=== PATIENT | female | born 1940 | race Caucasian/White ===

== ENCOUNTER → 2023-05-04 10:44 | Outpatient (REF) | payer MEDICARE, OTHER, SELFPAY ==
[2023-05-04 13:32] LABS: Blood Urea Nitrogen 22 mg/dl (7-17); Calcium 10.3 mg/dl (8.4-10.2); Carbon Dioxide 29 mmol/L (22-30); Chloride 99 mmol/L (98-107); Glucose 100 mg/dl (70-99); Potassium 4.1 mmol/L (3.5-5.1); Sodium 137 mmol/L (135-145); eGFR > 60.00
== END ==
LOC: HWLAB 10:44
PROVIDERS: ATTENDING PHYSICIAN Internal Medicine Rheumatology; FAMILY PHYSICIAN Physician Assistant
DX: M81.0 Age-related osteoporosis without current pathological fracture (principal)
CPT/HCPCS: 36415; 80048

== ENCOUNTER → 2023-06-08 12:09 | Outpatient (REF) | payer MEDICARE, OTHER, SELFPAY ==
[2023-06-08 12:41] LABS: Ionized Calcium 1.35 mMOL/L (1.15-1.33)
[2023-06-08 13:21] LABS: Blood Urea Nitrogen 25 mg/dl (7-17); Calcium 10.5 mg/dl (8.4-10.2); Carbon Dioxide 31 mmol/L (22-30); Chloride 102 mmol/L (98-107); Glucose 76 mg/dl (70-99); Potassium 4.3 mmol/L (3.5-5.1); Sodium 139 mmol/L (135-145); eGFR > 60.00
== END ==
LOC: REG 12:09
PROVIDERS: ATTENDING PHYSICIAN Internal Medicine Rheumatology; FAMILY PHYSICIAN Physician Assistant
DX: E83.52 Hypercalcemia (principal)
CPT/HCPCS: 36415; 80048; 82330

== ENCOUNTER → 2023-07-13 09:58 | Outpatient (REF) | payer MEDICARE, OTHER, SELFPAY ==
[2023-07-13 12:08] LABS: Blood Urea Nitrogen 23 mg/dl (7-17); Calcium 9.5 mg/dl (8.4-10.2); Carbon Dioxide 26 mmol/L (22-30); Chloride 106 mmol/L (98-107); Glucose 90 mg/dl (70-99); Sodium 139 mmol/L (135-145); eGFR 50.17
== END ==
LOC: REG 09:58
PROVIDERS: ATTENDING PHYSICIAN Internal Medicine Rheumatology; FAMILY PHYSICIAN Physician Assistant
DX: E83.52 Hypercalcemia (principal); M81.0 Age-related osteoporosis without current pathological fracture
CPT/HCPCS: 36415; 80048; 82330

== ENCOUNTER → 2023-07-19 18:33 | Outpatient (REF) | payer MEDICARE, OTHER, SELFPAY ==
[2023-07-19 18:50] LABS: Urine Albumin Negative (Neg - Trace); Urine Bilirubin Negative (Negative); Urine Character Clear (Clear); Urine Color Yellow; Urine Glucose Negative (Negative); Urine Ketone Negative (Negative); Urine Leukocyte 2+ (Negative); Urine Nitrite Negative (Negative); Urine Occult Blood Trace (Negative); Urine Urobilinogen Negative (Neg - 1+)
[2023-07-19 18:59] LABS: Urine Red Blood Cell 0-2 /HPF (0-2); Urine Squamous Cell 0-2 /LPF (Few); Urine White Cell 16-20 /HPF (0-5)
== END ==
LOC: CLAB 18:33
PROVIDERS: ATTENDING PHYSICIAN Specialist
DX: R31.0 Gross hematuria (principal)
CPT/HCPCS: 81003; 81015

== ENCOUNTER → 2023-09-20 09:44 | Outpatient (REF) | payer MEDICARE, OTHER, SELFPAY ==
[2023-09-20 12:37] LABS: Blood Urea Nitrogen 18 mg/dl (7-17); Calcium 10.1 mg/dl (8.4-10.2); Carbon Dioxide 28 mmol/L (22-30); Chloride 102 mmol/L (98-107); Glucose 84 mg/dl (70-99); Potassium 4.2 mmol/L (3.5-5.1); Sodium 137 mmol/L (135-145); eGFR > 60.00
== END ==
LOC: HWLAB 09:44
PROVIDERS: ATTENDING PHYSICIAN Internal Medicine Rheumatology; FAMILY PHYSICIAN Physician Assistant
DX: E07.9 Disorder of thyroid, unspecified (principal); E55.9 Vitamin D deficiency, unspecified; I25.10 Atherosclerotic heart disease of native coronary artery without angina pectoris; M19.041 Primary osteoarthritis, right hand; M25.551 Pain in right hip; M51.37 Other intervertebral disc degeneration, lumbosacral region; M81.0 Age-related osteoporosis without current pathological fracture; R29.890 Loss of height; Z79.899 Other long term (current) drug therapy
CPT/HCPCS: 36415; 80048

== ENCOUNTER → 2023-12-31 11:10 | Outpatient (REF) | payer MEDICARE, OTHER, SELFPAY ==
[2023-12-31 12:43] LABS: ALT (SGPT) 22 U/L (0-35); AST (SGOT) 27 U/L (14-36); Albumin 4.3 g/dl (3.5-5.0); Alkaline Phosphatase 97 U/L (38-126); Blood Urea Nitrogen 27 mg/dl (7-17); Calcium 11.1 mg/dl (8.4-10.2); Carbon Dioxide 29 mmol/L (22-30); Glucose 105 mg/dl (70-99); Potassium 4.7 mmol/L (3.5-5.1); Sodium 141 mmol/L (135-145); Total Protein 6.4 g/dl (6.3-8.2); eGFR > 60.00
[2023-12-31 12:50] LABS: Chloride 101 mmol/L (98-107)
== END ==
LOC: REG 11:10
PROVIDERS: ATTENDING PHYSICIAN Internal Medicine Rheumatology; FAMILY PHYSICIAN Physician Assistant
DX: E55.9 Vitamin D deficiency, unspecified (principal); I25.10 Atherosclerotic heart disease of native coronary artery without angina pectoris; M16.11 Unilateral primary osteoarthritis, right hip; M19.041 Primary osteoarthritis, right hand; M81.0 Age-related osteoporosis without current pathological fracture; R29.890 Loss of height; Z68.25 Body mass index [BMI] 25.0-25.9, adult; Z79.899 Other long term (current) drug therapy
CPT/HCPCS: 36415; 80053

== ENCOUNTER → 2024-01-21 11:04 | Outpatient (REF) | payer MEDICARE, OTHER, SELFPAY ==
[2024-01-21 11:40] LABS: Ionized Calcium 1.26 mMOL/L (1.15-1.33)
[2024-01-21 12:34] LABS: Blood Urea Nitrogen 31 mg/dl (7-17); Calcium 10.2 mg/dl (8.4-10.2); Carbon Dioxide 27 mmol/L (22-30); Chloride 104 mmol/L (98-107); Glucose 93 mg/dl (70-99); Potassium 4.2 mmol/L (3.5-5.1); Sodium 143 mmol/L (135-145); eGFR > 60.00
== END ==
LOC: REG 11:04
PROVIDERS: ATTENDING PHYSICIAN Internal Medicine Rheumatology; FAMILY PHYSICIAN Physician Assistant
DX: E83.52 Hypercalcemia (principal); M81.0 Age-related osteoporosis without current pathological fracture
CPT/HCPCS: 36415; 80048; 82330

== ENCOUNTER → 2024-02-18 12:08 | Outpatient (REF) | payer MEDICARE, OTHER, SELFPAY ==
[2024-02-18 14:25] LABS: Blood Urea Nitrogen 26 mg/dl (7-17); Calcium 10.3 mg/dl (8.4-10.2); Carbon Dioxide 28 mmol/L (22-30); Chloride 102 mmol/L (98-107); Glucose 87 mg/dl (70-99); Potassium 4.3 mmol/L (3.5-5.1); Sodium 140 mmol/L (135-145); eGFR > 60.00
[2024-02-18 14:31] LABS: Ionized Calcium 1.35 mMOL/L (1.15-1.33)
== END ==
LOC: REG 12:08
PROVIDERS: ATTENDING PHYSICIAN Internal Medicine Rheumatology; FAMILY PHYSICIAN Physician Assistant
DX: E83.52 Hypercalcemia (principal); M81.0 Age-related osteoporosis without current pathological fracture
CPT/HCPCS: 36415; 80048; 82330

== ENCOUNTER → 2024-03-17 10:18 | Outpatient (REF) | payer MEDICARE, OTHER, SELFPAY | LOC: HWRAD 10:18 | PROVIDERS: ATTENDING PHYSICIAN Internal Medicine Rheumatology; FAMILY PHYSICIAN Physician Assistant; REFERRING PHYSICIAN Podiatrist Foot & Ankle Surgery | DX: M70.62 Trochanteric bursitis, left hip (principal); M81.0 Age-related osteoporosis without current pathological fracture; M20.41 Other hammer toe(s) (acquired), right foot | CPT/HCPCS: 72114; 73502; 73630 ==

== ENCOUNTER → 2024-03-20 08:43 | Outpatient (REF) | payer MEDICARE, OTHER, SELFPAY ==
[2024-03-20 09:22] LABS: % Basophils 0.5 % (0-2); % Eosinophils 2.5 % (0-6); % Immature Granulocytes 0.3 % (0-0.5); % Lymphocytes 11.3 % (20.5-51.1); % Monocytes 8.3 % (1.7-9.3); % Neutrophils 77.1 % (42.2-75.2); Absolute Eosinophils 0.2 10^3/uL (0-0.7); Absolute Lymphocytes 0.7 10^3/uL (1.2-3.4); Absolute Monocytes 0.5 10^3/uL (0.1-0.6); Absolute Neutrophils 4.7 10^3/uL (1.4-6.5); Hematocrit 44.3 % (37.0-47.0); Hemoglobin 14.5 g/dL (12.0-16.0); Mean Corp Hgb Conc. 32.7 g/dL (33.0-37.0); Mean Corpuscular Hgb 32.2 pg (27.0-31.0); Mean Corpuscular Volume 98.2 fL (81.0-99.0); Mean Platelet Volume 9.4 fL (7.4-10.4); Nucleated Red Blood Cells % 0 %; Platelet Count 160 10^3/uL (130-400); Red Blood Cell Count 4.51 10^6/uL (4.20-5.40); Red Cell Dist. Width 13.4 % (11.5-14.5)
[2024-03-20 09:31] LABS: Ionized Calcium 1.24 mMOL/L (1.15-1.33)
[2024-03-20 10:00] LABS: C-Reactive Protein < 5.00 mg/L (0.0-10.00)
[2024-03-20 10:15] LABS: ALT (SGPT) 19 U/L (0-35); AST (SGOT) 25 U/L (14-36); Albumin 4.4 g/dl (3.5-5.0); Alkaline Phosphatase 93 U/L (38-126); Blood Urea Nitrogen 23 mg/dl (7-17); Calcium 9.6 mg/dl (8.4-10.2); Carbon Dioxide 31 mmol/L (22-30); Chloride 101 mmol/L (98-107); Glucose 84 mg/dl (70-99); Potassium 4.6 mmol/L (3.5-5.1); Sodium 138 mmol/L (135-145); Total Bilirubin 0.8 mg/dl (0.2-1.3); Total Protein 6.6 g/dl (6.3-8.2); Uric Acid 6.2 mg/dl (2.5-6.2); eGFR > 60.00
== END ==
LOC: REG 08:43
PROVIDERS: ATTENDING PHYSICIAN Internal Medicine Rheumatology; FAMILY PHYSICIAN Physician Assistant
DX: E55.9 Vitamin D deficiency, unspecified (principal); I25.10 Atherosclerotic heart disease of native coronary artery without angina pectoris; M16.11 Unilateral primary osteoarthritis, right hip; M19.041 Primary osteoarthritis, right hand; M70.62 Trochanteric bursitis, left hip; M81.0 Age-related osteoporosis without current pathological fracture; R29.890 Loss of height; Z79.899 Other long term (current) drug therapy
CPT/HCPCS: 36415; 80053; 82330; 84550; 85025; 86140

== ENCOUNTER → 2024-04-18 09:11 | Outpatient (REF) | payer MEDICARE, OTHER, SELFPAY ==
[2024-04-18 11:52] LABS: % Basophils 0.5 % (0-2); % Eosinophils 2.8 % (0-6); % Immature Granulocytes 0.2 % (0-0.5); % Lymphocytes 13.8 % (20.5-51.1); % Monocytes 6.8 % (1.7-9.3); % Neutrophils 75.9 % (42.2-75.2); Absolute Eosinophils 0.2 10^3/uL (0-0.7); Absolute Lymphocytes 0.8 10^3/uL (1.2-3.4); Absolute Monocytes 0.4 10^3/uL (0.1-0.6); Absolute Neutrophils 4.3 10^3/uL (1.4-6.5); Hematocrit 44.5 % (37.0-47.0); Hemoglobin 14.2 g/dL (12.0-16.0); Mean Corp Hgb Conc. 31.9 g/dL (33.0-37.0); Mean Corpuscular Hgb 31.3 pg (27.0-31.0); Mean Platelet Volume 10.2 fL (7.4-10.4); Nucleated Red Blood Cells % 0 %; Platelet Count 157 10^3/uL (130-400); Red Blood Cell Count 4.54 10^6/uL (4.20-5.40); Red Cell Dist. Width 12.8 % (11.5-14.5); White Blood Cell Count 5.7 10^3/uL (4.8-10.8)
[2024-04-18 12:01] LABS: ALT (SGPT) 17 U/L (0-35); AST (SGOT) 24 U/L (14-36); Albumin 4.2 g/dl (3.5-5.0); Alkaline Phosphatase 95 U/L (38-126); Blood Urea Nitrogen 21 mg/dl (7-17); Calcium 9.5 mg/dl (8.4-10.2); Carbon Dioxide 32 mmol/L (22-30); Chloride 101 mmol/L (98-107); Glucose 96 mg/dl (70-99); HDL Cholesterol 73 mg/dl; Iron 105 ug/dl (37-170); LDL Cholesterol, Calculated 55 mg/dl; Magnesium 1.9 mg/dl (1.6-2.3); Potassium 4.7 mmol/L (3.5-5.1); Sodium 139 mmol/L (135-145); Total Bilirubin 0.7 mg/dl (0.2-1.3); Total Cholesterol 144 mg/dl (50-199); Total Protein 6.6 g/dl (6.3-8.2); Triglyceride 81 mg/dl (10-149); Very Low Density Lipoprotein 16 mg/dl (0-30); eGFR > 60.00
[2024-04-18 12:11] LABS: Percent Saturation 31 % (20-50); Total Iron Binding Capacity 330 ug/dl (265-497)
[2024-04-18 12:17] LABS: Vitamin D, 25-OH*** 48.1 ng/mL (30-80)
[2024-04-18 12:35] LABS: Ferritin 34.7 ng/ml (11.1-264.0)
== END ==
LOC: HWLAB 09:11
PROVIDERS: ATTENDING PHYSICIAN Physician Assistant
DX: R25.2 Cramp and spasm (principal); I10 Essential (primary) hypertension; E78.5 Hyperlipidemia, unspecified; D50.9 Iron deficiency anemia, unspecified; I25.10 Atherosclerotic heart disease of native coronary artery without angina pectoris; M54.16 Radiculopathy, lumbar region; E55.9 Vitamin D deficiency, unspecified
CPT/HCPCS: 36415; 80053; 80061; 82306; 82728; 83540; 83550; 83735; 85025

== ENCOUNTER → 2024-04-28 13:59 | Outpatient (REF) | payer MEDICARE, OTHER, SELFPAY | LOC: HWWDC 13:59 | PROVIDERS: ATTENDING PHYSICIAN Physician Assistant | DX: Z12.31 Encounter for screening mammogram for malignant neoplasm of breast (principal) | CPT/HCPCS: 77063; 77067 ==

== ENCOUNTER → 2024-06-19 10:04 | Outpatient (REF) | payer MEDICARE, OTHER, SELFPAY | LOC: HWRAD 10:04 | PROVIDERS: ATTENDING PHYSICIAN Internal Medicine Rheumatology; FAMILY PHYSICIAN Physician Assistant | DX: Z13.820 Encounter for screening for osteoporosis (principal); M81.0 Age-related osteoporosis without current pathological fracture | CPT/HCPCS: 77080 ==

== ENCOUNTER → 2024-06-20 12:55 | Outpatient (REF) | payer MEDICARE, OTHER, SELFPAY ==
[2024-06-20 14:18] LABS: ALT (SGPT) 18 U/L (0-35); AST (SGOT) 26 U/L (14-36); Albumin 4.7 g/dl (3.5-5.0); Alkaline Phosphatase 85 U/L (38-126); Blood Urea Nitrogen 29 mg/dl (7-17); Calcium 10.2 mg/dl (8.4-10.2); Carbon Dioxide 32 mmol/L (22-30); Chloride 104 mmol/L (98-107); Glucose 96 mg/dl (70-99); Potassium 4.9 mmol/L (3.5-5.1); Sodium 142 mmol/L (135-145); eGFR > 60.00
[2024-06-20 14:32] LABS: Vitamin D, 25-OH*** 56.1 ng/mL (30-80)
== END ==
LOC: REG 12:55
PROVIDERS: ATTENDING PHYSICIAN Internal Medicine Rheumatology; FAMILY PHYSICIAN Physician Assistant
DX: E55.9 Vitamin D deficiency, unspecified (principal); I25.10 Atherosclerotic heart disease of native coronary artery without angina pectoris; M16.11 Unilateral primary osteoarthritis, right hip; M19.041 Primary osteoarthritis, right hand; M70.62 Trochanteric bursitis, left hip; M81.0 Age-related osteoporosis without current pathological fracture; R29.890 Loss of height; Z79.899 Other long term (current) drug therapy
CPT/HCPCS: 36415; 80053; 82306; 82330

== ENCOUNTER → 2024-07-21 08:12 | Outpatient (REF) | payer MEDICARE, OTHER, SELFPAY | LOC: HWRCS 08:12 | PROVIDERS: ATTENDING PHYSICIAN Nurse Practitioner; FAMILY PHYSICIAN Physician Assistant | DX: I25.10 Atherosclerotic heart disease of native coronary artery without angina pectoris (principal); R42 Dizziness and giddiness | CPT/HCPCS: 93306 ==

== ENCOUNTER → 2024-07-25 12:53 | Outpatient (REF) | payer MEDICARE, OTHER, SELFPAY ==
[2024-07-25 16:25] LABS: Urine Albumin Negative (Neg - Trace); Urine Bilirubin Negative (Negative); Urine Character Clear (Clear); Urine Color Yellow; Urine Glucose Negative (Negative); Urine Ketone Negative (Negative); Urine Leukocyte 2+ (Negative); Urine Nitrite Negative (Negative); Urine Occult Blood Negative (Negative); Urine Urobilinogen Negative (Neg - 1+)
[2024-07-25 16:39] LABS: Urine Red Blood Cell 0-2 /HPF (0-2); Urine White Cell 26-30 /HPF (0-5)
[2024-07-25 16:40] LABS: Urine Bacteria Moderate (Negative)
== END ==
LOC: HWRAD 12:53
PROVIDERS: ATTENDING PHYSICIAN Specialist; FAMILY PHYSICIAN Physician Assistant
DX: D49.4 Neoplasm of unspecified behavior of bladder (principal); N20.0 Calculus of kidney; R31.0 Gross hematuria
CPT/HCPCS: 74018; 76770; 81003; 81015; 87086; 87088; 87186

== ENCOUNTER 2024-12-11 18:21 | Inpatient (IN) | payer MEDICARE, OTHER, SELFPAY ==
[2024-12-11] VITALS (38 sets, daily range): BP systolic 73–143; BP diastolic 41–81; BMI 28.4
[2024-12-11 13:35] LABS: Hematocrit 41.2 % (37.0-47.0); Hemoglobin 13.7 g/dL (12.0-16.0); Mean Corp Hgb Conc. 33.3 g/dL (33.0-37.0); Mean Corpuscular Volume 94.3 fL (81.0-99.0); Platelet Count 75 10^3/uL (130-400); Red Cell Dist. Width 13.6 % (11.5-14.5)
--- NOTE | 2024-12-11 14:13 | ED.GENMED ---
History of Present Illness
<Chanell Alicia ENVIRONMENTAL SPECIALIST - Last Filed: 12/12/24 14:15>
General
Chief Complaint: Blood Pressure Problem
Source: patient
Exam Limitations: none
Time Seen by Provider: 12/11/24 14:03
Nursing documentation reviewed up to this point in time: agreed with
History of Present Illness
History of Present Illness:
84 yo female w h/o HTN, SD, SVT, osteoporosis, anemia, kidney stones, presents from PCP office for fever, chills, low back pain, also rash bilateral ankles. Was in [place] and [place] last week visiting, [facility]. Pt has had PND and
taking Flonase. Denies cough or sore throat.
Low back pain started 7 p.m., and hour later shaking chills, temp 102. Took ASA x 2 tabs, pain was 6/10. Woke at 6 a.m. took 2 more ASA.
Vomited once on arrival here.
Denies CP, SOB, denies abdominal pain. Low back pain now 3/10 from 7/10 last p.m.
Past History
<Chanell Alicia ENVIRONMENTAL SPECIALIST - Last Filed: 12/12/24 14:15>
Past History
ED Past Medical History: Arrthythmia, CAD, HTN, Hypercholesterolemia, SD and Other (Osteoporosis)
ED Past Surgical History: Other (Radiofrequency Ablation therapy Lumbar spine Corticosteroid injection L hip)
Social History
Tobacco: Non-smoker
Alcohol: Occasional
Drug: None
Personal:
Living: with family
Family History
Family History: CAD and Other (No arrhythmias)
Review of Systems
<Chanell Alicia ENVIRONMENTAL SPECIALIST - Last Filed: 12/12/24 14:15>
Review of Systems
Allergies reviewed?: Yes
All Other Systems: ROS reviewed and negative except as documented in HPI and ROS
Phy Exam
<Chanell Alicia, ENVIRONMENTAL SPECIALIST - Last Filed: 12/12/24 14:15>
Physical Exam
Physical Exam:
GENERAL: Hypotensive but stable. A&Ox3.
CONSTITUTIONAL: Afebrile.
EYES: clear, conjunctivae normal
ENMT: moist mucus membranes, Pharynx nl
RESPIRATORY: Regular respirations, nonlabored, lungs clear.
CARDIOVASCULAR: Regular rate and rhythm, no murmurs, no rubs.
GI: Soft, nontender, normal BS
MUSCULOSKELETAL: Moves with ease. Well perfused.
SKIN: Warm, dry, pink. Non blanching raised purple lesions about both ankles, nowhere else on body, Surrounding skin is normal.
PSYCH: Normal mood and affect. Well kept, interactive and appropriate
NEUROLOGIC: Awake, alert and oriented. No focal neurological deficits
Course
<Chanell Alicia, ENVIRONMENTAL SPECIALIST - Last Filed: 12/12/24 14:15>
Orders/Labs/Results
Orders:
Orders
12/11/24 13:18
Basic Metabolic Panel Urgent
Complete Blood Count/With Diff Urgent
Lactic Acid Q4H
Comment: ON ICE, CANCEL 2ND ORDER IF FIRST LACTIC ACID LEVEL <2
Manual Differential Urgent
Blood Culture Q20M
TOMMY Source: Blood/Venous
Specimen Description:
Comment: Urgent from separate sites. If patient screens positive for possible sepsis
12/11/24 13:19
Blood Culture Q20M
TOMMY Source: Blood/Venous
Specimen Description:
Comment: Urgent from separate sites. If patient screens positive for possible sepsis
12/11/24 14:11
Straight cath- Treatment ONCE
12/11/24 14:12
0.9% Sodium Chloride 1000 ml [Nss] 1,800 ml IV NOW STA
12/11/24 14:15
COVID-19 Antigen Urgent
Source: Nasal Swab
Influenza A+B Rapid Molecular Urgent
TOMMY Source: Nasal Swab
Specimen Description:
12/11/24 14:16
Urinalysis Reflex To Culture Urgent
Date Specimen was Collected: 12/11/24
Time Specimen was Collected: 14:14
Urine Microscopic Reflex Cult Urgent
Urine Culture Urgent
TOMMY Source: U
Specimen Description:
Date Specimen was Collected: 12/11/24
Time Specimen was Collected: 14:14
12/11/24 14:42
CT Abd/pel Without Iv Or Oral Urgent
Comment:
Reason For Exam: low back pain, fever, chills, hx kidney stones
12/11/24 14:44
Cefepime HCl [Maxipime] 2,000 mg IV NOW STA
12/11/24 14:52
Vancomycin [Vancocin] 1,500 mg 0.9% Sodium Chloride 500 ml [Nss] 500 ml IV NOW
12/11/24 Dinner
Cholesterol Lowering
At Your Request: Full Participation
Cholesterol Lowering: Sodium, 2 Gram
12/11/24 15:54
CR Chest Portable - 1 View Urgent
Comment:
Reason For Exam: fever
Reason Study Needs to be Portable: Patient Unstable
12/11/24 17:30
Lactic Acid Q4H
Comment: ON ICE, CANCEL 2ND ORDER IF FIRST LACTIC ACID LEVEL <2
12/11/24 17:32
UROLOGY CONSULT Urgent
Consulting Provider: Lobo Gary
Was physician already notified: Yes
Comment: obstructive pyelonephritis, sepsis
12/11/24 17:41
0.9% Sodium Chloride 1000 ml [Nss] 1,000 ml IV BOLUS
12/11/24 17:52
Lidocaine HCl/Pf [Xylocaine-Mpf 1% Vial] 50 mg .ROUTE .STK-MED ONE
Propofol [Diprivan] 20 ml .ROUTE .STK-MED
12/11/24 17:54
Fentanyl Citrate/Pf [Sublimaze] 100 mcg .ROUTE .STK-MED ONE
12/11/24 18:03
Admit/Transfer Patient As Directed
Co-Sign Provider:
Level of Care: Inpatient admission
Assign to:: IMU- Intermediate Care
Physician / Group: [facility] - hospitalists
Diagnosis: Sepsis POA, UTI, obstructive stone
Reason for Hospitalization: Sepsis POA, UTI, obstructive stone - OR urgently, IVF, IV abx
Expected length of stay greater than two midnights?: Yes
ELOS- Estimated Length of Stay in days: 3
I certify the patient meets the requirements for IP care: Yes
PRN Pain Medication Management As Directed
May give lesser potent ordered pain med per pt: Yes
preference::
Protocol:: Medication orders for pain may be administered in a
manner that supports deferring to patient preference
when the pt is:
- Requesting an ordered lesser potent pain medication.
Least to most potent pain medications are defined
as: acetaminophen < NSAID < tramadol < opioids
(morphine, oxycodone, hydromorphone).
- Requesting a lesser dose of the same medication IF
ORDERED.
- Requesting a less intrusive route of administration
if both routes are prescribed by the provider (PO <
IV).
12/11/24 18:04
Code Status As Directed
Resuscitation Status: Full Code
12/11/24 18:46
0.9% Sodium Chloride 1000 ml [Nss] 1,000 ml IV 100 mls/hr
Acetaminophen [Tylenol] 1,000 mg PO Q6HPRN PRN mild pain/fever
Bisacodyl [Dulcolax] 10 mg RECTAL [id number] PRN
Docusate W/Senna [Senokot-S] 1 tablet PO BIDPRN PRN
Ondansetron Injectable [Zofran] 4 mg IV Q6HPRN PRN
Polyethylene Glycol Powder [Miralax] 17 grams PO DAILYPRN PRN
Tramadol HCl [Ultram] 50 mg PO Q6HPRN PRN
12/11/24 18:46
Activity As Directed
Activity Level: As Tolerated
Vital Signs As Directed
Frequency: Per unit guidelines
Rx Incentive Spirometry [RESP] Routine
Frequency: q1h while awake
Ot Eval And Treat Routine
Pt Eval And Treat Routine
Activity Level: As Tolerated
DX Deep Vein Thrombosis Video Routine
12/11/24 20:00
Piperacillin/Tazo 2.25 Gram [Zosyn] 2.25 grams in 50 ml IV Q6H
12/12/24 03:32
Basic Metabolic Panel IN AM
Complete Blood Count/No Diff IN AM
12/12/24 08:00
Aspirin Chewable [Low Strength Aspirin] 81 mg PO DAILY
Carvedilol [Coreg] 12.5 mg PO BID
Heparin 5,000 units SC Q12
12/12/24 18:00
Atorvastatin [Lipitor] 80 mg PO QPM
Abnormal Lab Results
12/11/24 12/11/24
13:18 14:16
WBC 13.2 H 10^3/uL
(4.8-10.8)
MCH 31.4 H pg
(27.0-31.0)
Plt Count 75 L 10^3/uL
(130-400)
Abs Immat Gran (auto) 0.2 H 10^3/uL
(0-0.05)
Absolute Neuts (auto) 12.2 H 10^3/uL
(1.4-6.5)
Absolute Lymphs (auto) 0.2 L 10^3/uL
(1.2-3.4)
Immature Gran % 1.7 H %
(0-0.5)
Neutrophils % 92.5 H %
(42.2-75.2)
Lymphocytes % 1.5 L %
(20.5-51.1)
Abs Neuts (Manual) 12.2 H 10^3/uL
(1.4-6.5)
Band Neutrophils 23 H %
(0-3)
Lymphocytes (Manual) 1 L %
(20-51)
Monocytes (Manual) 1 L %
(2-9)
BUN 38 H mg/dl
(7-17)
Creatinine 1.6 H mg/dL
(0.6-1.0)
Glucose 109 H mg/dl
(70-99)
Lactic Acid 2.8 H mmol/L
(0.7-2.0)
Urine Ketones 1+ A
(Negative)
Ur Occult Blood Reflex 4+ A
(Negative)
Leukocyte Esterase Rfl 3+ A
(Negative)
Urine RBC 90-100 A /HPF
(0-2)
Urine WBC (Reflex) 26-30 A /HPF
(0-5)
Urine Bacteria (Reflex) Many A
(Negative)
Urine Albumin (Reflex) 2+ A
(Neg - Trace)
12/11/24 13:18
12/11/24 13:18
Vital Signs
Initial and Last Documented VS:
Initial Vital Signs
Temp Pulse Resp BP Pulse Ox
98.8 F 94 16 80/49 92
12/11/24 13:06 12/11/24 13:06 12/11/24 13:06 12/11/24 13:06 12/11/24 13:06
Last Documented Vital Signs
Temp Pulse Resp BP Pulse Ox
98.3 F 86 18 105/65 95
12/12/24 12:05 12/12/24 13:45 12/12/24 13:45 12/12/24 13:00 12/12/24 13:45
Mechanical Laboratory Technician consulted with Physician
Mechanical Laboratory Technician consulted with physician?: Yes
Name of Physician Consulted: Adolfo
<Radha Mata, DO - Last Filed: 12/11/24 15:55>
Orders/Labs/Results
Orders:
Orders
12/11/24 13:18
Basic Metabolic Panel Urgent
Complete Blood Count/With Diff Urgent
Lactic Acid Q4H
Comment: ON ICE, CANCEL 2ND ORDER IF FIRST LACTIC ACID LEVEL <2
Manual Differential Urgent
Blood Culture Q20M
TOMMY Source: Blood/Venous
Specimen Description:
Comment: Urgent from separate sites. If patient screens positive for possible sepsis
12/11/24 13:19
Blood Culture Q20M
TOMMY Source: Blood/Venous
Specimen Description:
Comment: Urgent from separate sites. If patient screens positive for possible sepsis
12/11/24 14:11
Straight cath- Treatment ONCE
12/11/24 14:12
0.9% Sodium Chloride 1000 ml [Nss] 1,800 ml IV NOW STA
12/11/24 14:15
COVID-19 Antigen Urgent
Source: Nasal Swab
Influenza A+B Rapid Molecular Urgent
TOMMY Source: Nasal Swab
Specimen Description:
12/11/24 14:16
Urinalysis Reflex To Culture Urgent
Date Specimen was Collected: 12/11/24
Time Specimen was Collected: 14:14
Urine Microscopic Reflex Cult Urgent
Urine Culture Urgent
TOMMY Source: U
Specimen Description:
Date Specimen was Collected: 12/11/24
Time Specimen was Collected: 14:14
12/11/24 14:42
CT Abd/pel Without Iv Or Oral Urgent
Comment:
Reason For Exam: low back pain, fever, chills, hx kidney stones
12/11/24 14:44
Cefepime HCl [Maxipime] 2,000 mg IV NOW STA
12/11/24 14:52
Vancomycin [Vancocin] 1,500 mg 0.9% Sodium Chloride 500 ml [Nss] 500 ml IV NOW
12/11/24 Dinner
Cholesterol Lowering
At Your Request: Full Participation
Cholesterol Lowering: Sodium, 2 Gram
12/11/24 15:54
CR Chest Portable - 1 View Urgent
Comment:
Reason For Exam: fever
Reason Study Needs to be Portable: Patient Unstable
12/11/24 17:30
Lactic Acid Q4H
Comment: ON ICE, CANCEL 2ND ORDER IF FIRST LACTIC ACID LEVEL <2
12/11/24 17:32
UROLOGY CONSULT Urgent
Consulting Provider: Lobo Gary
Was physician already notified: Yes
Comment: obstructive pyelonephritis, sepsis
12/11/24 17:41
0.9% Sodium Chloride 1000 ml [Nss] 1,000 ml IV BOLUS
12/11/24 17:52
Lidocaine HCl/Pf [Xylocaine-Mpf 1% Vial] 50 mg .ROUTE .STK-MED ONE
Propofol [Diprivan] 20 ml .ROUTE .STK-MED
12/11/24 17:54
Fentanyl Citrate/Pf [Sublimaze] 100 mcg .ROUTE .STK-MED ONE
12/11/24 18:03
Admit/Transfer Patient As Directed
Co-Sign Provider:
Level of Care: Inpatient admission
Assign to:: IMU- Intermediate Care
Physician / Group: [facility] hospitalists
Diagnosis: Sepsis POA, UTI, obstructive stone
Reason for Hospitalization: Sepsis POA, UTI, obstructive stone - OR urgently, IVF, IV abx
Expected length of stay greater than two midnights?: Yes
ELOS- Estimated Length of Stay in days: 3
I certify the patient meets the requirements for IP care: Yes
PRN Pain Medication Management As Directed
May give lesser potent ordered pain med per pt: Yes
preference::
Protocol:: Medication orders for pain may be administered in a
manner that supports deferring to patient preference
when the pt is:
- Requesting an ordered lesser potent pain medication.
Least to most potent pain medications are defined
as: acetaminophen < NSAID < tramadol < opioids
(morphine, oxycodone, hydromorphone).
- Requesting a lesser dose of the same medication IF
ORDERED.
- Requesting a less intrusive route of administration
if both routes are prescribed by the provider (PO <
IV).
12/11/24 18:04
Code Status As Directed
Resuscitation Status: Full Code
12/11/24 18:46
0.9% Sodium Chloride 1000 ml [Nss] 1,000 ml IV 100 mls/hr
Acetaminophen [Tylenol] 1,000 mg PO Q6HPRN PRN mild pain/fever
Bisacodyl [Dulcolax] 10 mg RECTAL [id number] PRN
Docusate W/Senna [Senokot-S] 1 tablet PO BIDPRN PRN
Ondansetron Injectable [Zofran] 4 mg IV Q6HPRN PRN
Polyethylene Glycol Powder [Miralax] 17 grams PO DAILYPRN PRN
Tramadol HCl [Ultram] 50 mg PO Q6HPRN PRN
12/11/24 18:46
Activity As Directed
Activity Level: As Tolerated
Vital Signs As Directed
Frequency: Per unit guidelines
Rx Incentive Spirometry [RESP] Routine
Frequency: q1h while awake
Ot Eval And Treat Routine
Pt Eval And Treat Routine
Activity Level: As Tolerated
DX Deep Vein Thrombosis Video Routine
12/11/24 20:00
Piperacillin/Tazo 2.25 Gram [Zosyn] 2.25 grams in 50 ml IV Q6H
12/12/24 03:32
Basic Metabolic Panel IN AM
Complete Blood Count/No Diff IN AM
12/12/24 08:00
Aspirin Chewable [Low Strength Aspirin] 81 mg PO DAILY
Carvedilol [Coreg] 12.5 mg PO BID
Heparin 5,000 units SC Q12
12/12/24 18:00
Atorvastatin [Lipitor] 80 mg PO QPM
Abnormal Lab Results
12/11/24 12/11/24
13:18 14:16
WBC 13.2 H 10^3/uL
(4.8-10.8)
MCH 31.4 H pg
(27.0-31.0)
Plt Count 75 L 10^3/uL
(130-400)
Abs Immat Gran (auto) 0.2 H 10^3/uL
(0-0.05)
Absolute Neuts (auto) 12.2 H 10^3/uL
(1.4-6.5)
Absolute Lymphs (auto) 0.2 L 10^3/uL
(1.2-3.4)
Immature Gran % 1.7 H %
(0-0.5)
Neutrophils % 92.5 H %
(42.2-75.2)
Lymphocytes % 1.5 L %
(20.5-51.1)
Abs Neuts (Manual) 12.2 H 10^3/uL
(1.4-6.5)
Band Neutrophils 23 H %
(0-3)
Lymphocytes (Manual) 1 L %
(20-51)
Monocytes (Manual) 1 L %
(2-9)
BUN 38 H mg/dl
(7-17)
Creatinine 1.6 H mg/dL
(0.6-1.0)
Glucose 109 H mg/dl
(70-99)
Lactic Acid 2.8 H mmol/L
(0.7-2.0)
Urine Ketones 1+ A
(Negative)
Ur Occult Blood Reflex 4+ A
(Negative)
Leukocyte Esterase Rfl 3+ A
(Negative)
Urine RBC 90-100 A /HPF
(0-2)
Urine WBC (Reflex) 26-30 A /HPF
(0-5)
Urine Bacteria (Reflex) Many A
(Negative)
Urine Albumin (Reflex) 2+ A
(Neg - Trace)
12/11/24 13:18
12/11/24 13:18
Vital Signs
Initial and Last Documented VS:
Initial Vital Signs
Temp Pulse Resp BP Pulse Ox
98.8 F 94 16 80/49 92
12/11/24 13:06 12/11/24 13:06 12/11/24 13:06 12/11/24 13:06 12/11/24 13:06
Last Documented Vital Signs
Temp Pulse Resp BP Pulse Ox
98.3 F 86 18 105/65 95
12/12/24 12:05 12/12/24 13:45 12/12/24 13:45 12/12/24 13:00 12/12/24 13:45
<Chanell Alicia ENVIRONMENTAL SPECIALIST - Last Filed: 12/12/24 14:15>
MDM/Problems Addressed
Differential Diagnosis Includes:
Pyelonephritis, UTI, kidney stone
MDM/Problems Addressed:
84 yo female w h/o HTN, SD, SVT, osteoporosis, anemia, kidney stones, presents from PCP office for fever, chills, low back pain, also rash bilateral ankles. Was in [place] and [place] last week visiting, [facility]. Pt has had PND and
taking Flonase. Denies cough or sore throat.
Low back pain started 7 p.m., and hour later shaking chills, temp 102. Took ASA x 2 tabs, pain was 6/10. Woke at 6 a.m. took 2 more ASA.
Vomited once on arrival here.
Denies CP, SOB, denies abdominal pain. Low back pain now / from 7 last p.m.
Afebrile. BP 78/44 MAP 21
Pt alert, oriented, mentating well. Non blanching purple lesions both ankles.
Sepsis protocol followed.
2:40 p.m.
After 1200 IVFs BP LUE 84/42, (MAP 69) comfortable
Most suspicious of Pyelonephritis with Sepsis, Antibiotics ordered
Case discussed with Dr. Mata
CBC: Mild leukocytosis, thrombocytopenia with platelets of 75
CMP: BUN/creat 38/1.6 GFR 31.61
Lactic 2.8
3:00 p.m.
U/A: 4+ occult blood, 98-100 RBCs, 26-30 WBCs, many bacteria, 3+ leukocytes, negative nitrites, 2+ albumin
COVID test is negative
Influenza A & B neg
Purpura rash; seems to be slowly spreading, few scattered lesions around knees and one on left thigh.
Radial pulse in E weaker (1/4)than in RUE (2/4) so rechecked BP in RUE 88/46 (MAP 60)
4:15 p.m.
After 2 L NSS BP 89/53 (MAP 64) HR 98. Pt resting comfortably
To CT scan
CT scan showing 'Right-sided obstructive uropathy secondary to 5.1 mm calculus in the proximal right ureter. Superimposed infection to be excluded.'
Hospitalist and Urology notified of admission.
Plan: Admit: obstructive uropathy Sepsis, acute renal insufficiency, thrombocytopenia, purpura rash lower extremities
Critical care statement: A total of 40 minutes of critical care time was provided for this patient. This includes management of unstable vital signs, evaluation of the patient at bedside, reviewing the patient's pertinent medical records, discussion
with consultants and review of pertinent medical records. This time with separate from time utilized to perform the aforementioned documented procedures
Chronic conditions affecting care:
Kidney stones
Chronic conditions affecting care: HTN
<Chanell Alicia ENVIRONMENTAL SPECIALIST - Last Filed: 12/12/24 14:15>
*Pulse Oximetry
SaO2: 92
Oxygen Mode of Delivery: Room air
Patient hypoxic: no
Comment: At 3:00 p.m. pulse ox 96% RA
*Critical Care Note
Total Time (30-74mins, 75-104mins- exclusive of procedures): Not Applicable
ED Attending Note
<Chanell Alicia ENVIRONMENTAL SPECIALIST - Last Filed: 12/12/24 14:15>
-
Portions of this chart may have been created with voice recognition software.� Occasional wrong word or��sound alike� substitutions may have occurred due to the inherent limitations of voice recognition software.
<Radha Mata DO - Last Filed: 12/11/24 15:55>
ED Attending Note
Patient seen and examined by attending physician: Yes
I performed the substantive portion of visit, reviewed & personally made and approve the management plan that is documented in note by myself or SOO.: Yes
I performed a history and physical exam of patient and discussed management with resident, I reviewed resident's note and agree with documented findings and plan of care.: Yes
ED Attending Note:
84-year-old female presents to the ER from PCP office for evaluation of hypotension. Patient reports low back discomfort along with a fever up to 102 last night. Patient denies any pain at current time. She does have prior history of urinary
tract infections and kidney stones. Vital signs reviewed, patient awake, alert, appears in no acute distress, mucous membranes moist, conjunctiva pink, abdomen is soft and nontender on palpation, bilateral lower extremities with scattered purpura
around the ankles and medial left knee, GCS is 15, 2+ DP and PT pulses present symmetric. I discussed with patient need for admission for treatment of hypertension with fever. Awaiting CT scan to rule out complicated urinary tract infection.
Patient and present bedside agree with plan at current
Discharge Plan
Departure
Patient Disposition: Admit
Date of Disposition: 12/11/24
Time of Disposition: 17:34
Presentation/result/management discussed w/ accepting MD/DO: Hospitalist
Condition: Serious
Discharge Problem:
Acute unilateral obstructive uropathy, Sepsis, Acute pyelonephritis
Interventions
Interventions:
*Risk Screen - Suicide Last Done: 12/11/24 13:06
*General Assessment Last Done: 12/11/24 13:48
*Neglect/Abuse Screening Last Done: 12/11/24 13:48
*ED- Fall Risk Assessment Last Done: 12/11/24 13:48
*ED COVID-19 Vaccine History Last Done: 12/11/24 13:48
*Nursing Disposition Last Done: 12/11/24 18:21
ED- Cardiac Assessment Last Done: 12/11/24 13:48
ED- Neurological Assessment Last Done: 12/11/24 13:48
ED- Pulmonary Assessment Last Done: 12/11/24 13:48
Discharge Date and Time
Discharge Date/Time: 12/11/24 18:22
[2024-12-11] MEDS: NSS 1800 ML IV (14:21)
[2024-12-11 14:22] LABS: Blood Urea Nitrogen 38 mg/dl (7-17); Calcium 9.4 mg/dl (8.4-10.2); Carbon Dioxide 24 mmol/L (22-30); Chloride 101 mmol/L (98-107); Estimated Creatinine Clearance 20 ml/min; Glucose 109 mg/dl (70-99); Sodium 135 mmol/L (135-145); eGFR 31.61
[2024-12-11 14:32] LABS: Urine Character Cloudy (Clear)
[2024-12-11 14:34] LABS: Absolute Neutrophils -Man Diff 12.2 10^3/uL (1.4-6.5)
[2024-12-11 14:36] LABS: Normal RBC Morphology Yes; Platelets Checked Yes; Total Cells Counted 100
[2024-12-11 14:45] LABS: Nucleated Red Blood Cells % 0 %
[2024-12-11 14:48] LABS: COVID-19 Antigen Negative (Negative)
[2024-12-11] MEDS: MAXIPIME 2000 MG IV (14:49)
[2024-12-11 14:57] LABS: Urine Urothelial Cell 0-2 /LPF (FEW)
[2024-12-11 14:59] LABS: Urine Red Blood Cell 90-100 /HPF (0-2)
[2024-12-11 15:00] LABS: Urine White Cell 26-30 /HPF (0-5)
[2024-12-11] MEDS: VANCOCIN 530 MG IV (15:14)
--- NOTE | 2024-12-11 17:52 | HPS.HSE ---
Family Physician
-
Family Physician: Toshia Gardiner
Chief Complaint
-
Low back pain/fever/chills
History of Present Illness
84 y/o F, hx of HTN, CAD, SVT renal stones presents to ER from PCP office with low back and fever/chills. Symptoms began last evening at 7pm. 1 hour later she developed shaking cells and fever of 102. took ASA last evening and this AM to help with
symptoms but no relief. Today in ER vomiting x 1 (no blood). No other complaints.
in ER, initial VS (hypotension) And labs suggestive of sepsis and UTI discovered on UA
CT showed obstructive R prox ureteral stone
Urology notified and taking urgently to OR for stenting
Medical History
Past Medical History
Past Medical History: Reports Other (hx of HTN, CAD, SVT renal stones)
Past Surgical History: Reports Other (Radiofrequency Ablation therapy Lumbar spine Corticosteroid injection L hip)
Social History
Tobacco: Non-smoker
Alcohol: Occasional
Drug: None
Personal:
Living: With Family
Family History
Family History: Not pertinent
Allergies / Home Medications
Allergies reflects when Allergies were last updated in [facility].
Home Medications with original date entered in [facility]
Allergy/Medication List:
Allergies
Allergy/AdvReac Type Severity Reaction Status Date / Time
No Known Allergies Allergy Verified 12/11/24 13:06
Home Medications
Curamed 1 tab PO DAILY Supplement 07/25/21
Prevagen 1 tab PO DAILY Supplement 07/25/21
aspirin 81 mg chewable tablet 81 mg PO DAILY 07/29/21
atorvastatin 80 mg tablet 80 mg PO QPM #90 tabs 07/29/21
losartan 25 mg tablet 25 mg PO HS 02/01/22
acetaminophen 500 mg tablet 1,000 mg PO Q6HPRN PRN mild pain/fever 12/11/24
acetaminophen 650 mg tablet,extended release 650 mg PO Q8HPRN PRN mild pain/fever 12/11/24
carvedilol 12.5 mg tablet 12.5 mg PO BID 12/11/24
diphenhydramine 25 mg-acetaminophen 500 mg tablet (Tylenol PM Extra Strength) 1 tab PO HSPRN PRN sleep 12/11/24
magnesium 250 mg tablet 250 mg PO DAILY 12/11/24
teriparatide 20 mcg/dose (560 mcg/2.24 mL) subcutaneous pen injector (Forteo) 20 mcg SC MOWEFR 12/11/24
Review of Systems
-
A 12 point ROS was completed and negative except as noted: Yes
Physical Exam
Vital Signs
Vital Signs
Temp Pulse Resp BP Pulse Ox
99 F 90 19 90/49 96
12/11/24 14:46 12/11/24 17:20 12/11/24 17:20 12/11/24 17:20 12/11/24 16:45
Physical Exam
General: No Apparent Distress
HEENT: NormoCephalic and Anicteric
Respiratory: Clear; No Wheezes or Rales
Cardiac: S1/S2 and Regular Rhythm
Neuro: AO x 3
Psych: Calm
Laboratory Results
-
12/11/24 13:18
12/11/24 13:18
Laboratory Results
Lactic Acid 2.8 mmol/L (0.7-2.0) H 12/11/24 13:18
Total Bilirubin Cancelled 12/11/24 13:18
AST Cancelled 12/11/24 13:18
ALT Cancelled 12/11/24 13:18
Alkaline Phosphatase Cancelled 12/11/24 13:18
Data Reviewed
-
CT Scan: Report Reviewed by me
Lab Data: Labs Reviewed by me
Impression/Plan
-
Assessment:
Severe sepsis POA (leukocytosis, tachycardia, UTI, lactic acidosis)
acute UTI
- CT: Right-sided obstructive uropathy secondary to 5.1 mm calculus in the proximal right ureter. Superimposed infection to be excluded.
- IMU Admit
- sepsis protocol IVF; lactate improved
- monitor BP post-op, may need low rate pressors
- empiric Zosyn pending cultures (received Vanco/Cefepime in ER)
- Urology consult; urgent OR now for stenting
RAULITO, obstructive
- continue IVF
- repeat BMP
- hold ARB
Essential HTN
- hold ARB
- continue BB
CAD
hx of SVT
- continue ASA/Statin/BB
DVT ppx: SC Heparin starting in AM
Code: Full
[2024-12-11] MEDS: NSS 1000 IV ×2 (18:03→20:36)
--- NOTE | 2024-12-11 18:16 | W.PN.URO.CBU ---
Today's Communication / Plan
-
did marquez nd p called op room consetned preoop
Assessment / Plan
-
urosepsis due to obstructing stone plan fluid resuscitation roberts cxs iv abs ansd maniulate stone gretchen and leave stent if fails then perc tube
Diagnosis
-
Date of Service: December 11, 2024
-
Patient Diagnosis:sepsis syndrome hypotension due to obstructing rt prox urertal stone
Post Op Day:
Subjective
-
fevr chills colic x 16 hours rt sided pain
Objective
-
Vital Signs
Temp Pulse Resp BP Pulse Ox
99 F 97 23 101/58 94
12/11/24 14:46 12/11/24 18:00 12/11/24 18:00 12/11/24 18:00 12/11/24 18:00
Laboratory Results
12/11/24 13:18
12/11/24 13:18
Review of Systems
-
Constitutional: Fever, Night Sweats and Chills
: Flank Pain
Physical Exam
-
General - well developed, well nourished, no acute distress toxic
Chest - clear bilaterally
Abdomen - soft, non-tender, positive bowel sounds, CVAT, no incisional pain or distention
Genitalia - normal
Rectal - normal
Skin - warm & dry with no rash
Neuro - AOx3, no motor deficits
Extremities - no clubbing, no cyanosis, no edema
Incision - clean, dry
Dressing - clean, dry, intact
Care Review
Data Reviewed
Discussed with: Hospitalist and Nursing
CT Scan: Image Pers Reviewed
--- NOTE | 2024-12-11 19:17 | W.SUR.POST ---
Surgical Immediate Post Op
Note
Pre Op Diagnosis: rt ureteral stone with obstruction sepsis
Post Op Diagnosis: same
Procedure Performed: cystoscopy stone manipulation jj stent rgp on rt
Secondary Surgeons:
Anesthesia: dr abad general
Estimated Blood Loss: 1
Fluids:nss
Drains/Shunts: 6 fr 25
Specimens/Cultures: 0
Doppler/Duplex/Angio (Y/N):
Complications: 0
Operative Findings: septic pt with prox stone manipulated gross pus drained above stone stented
--- NOTE | 2024-12-11 19:49 | W.PN.UPDATE ---
Update Note
Progress Note Update
Patient has received >3L IVF but now on 8 of Levophed (max for IMU) with BP 87/47, with MAP 60. Will upgrade to ICU level. ICU consulted.
[2024-12-11] MEDS: LEVOPHED 250 IV (20:00)
[2024-12-11] MEDS: ZOSYN 50 IV (21:05)
[2024-12-11 21:14] LABS: Hematocrit 35.2 % (37.0-47.0); Hemoglobin 11.7 g/dL (12.0-16.0); Mean Corp Hgb Conc. 33.2 g/dL (33.0-37.0); Mean Corpuscular Volume 95.4 fL (81.0-99.0); Platelet Count 62 10^3/uL (130-400); Red Cell Dist. Width 14.1 % (11.5-14.5)
[2024-12-11 21:15] LABS: INR 1.27; PT 16.2 Sec (11.4-14.6)
[2024-12-11 21:16] LABS: APTT 30.4 Sec (23.4-35.0)
[2024-12-11 21:27] LABS: ALT (SGPT) 16 U/L (0-35); AST (SGOT) 23 U/L (14-36); Albumin 2.8 g/dl (3.5-5.0); Alkaline Phosphatase 45 U/L (38-126); Blood Urea Nitrogen 30 mg/dl (7-17); Calcium 6.8 mg/dl (8.4-10.2); Carbon Dioxide 21 mmol/L (22-30); Chloride 110 mmol/L (98-107); Estimated Creatinine Clearance 30 ml/min; Glucose 97 mg/dl (70-99); Magnesium 1.5 mg/dl (1.6-2.3); Potassium 4.3 mmol/L (3.5-5.1); Sodium 134 mmol/L (135-145); Total Protein 4.7 g/dl (6.3-8.2); eGFR 49.55
[2024-12-11] MEDS: MAGNESIUM SULFATE 50 IV (22:15)
[2024-12-11] MEDS: CALCIUM GLUCONATE 130 MG IV (22:51)
--- NOTE | 2024-12-11 22:58 | PTCARENOTE ---
Pt received from PACU ~ 2014. 2L NC 97%. Lungs clear b/l. AAOx4, slightly drowsy. Connor draining yellow cloudy urine. HR SR on telemetry. Levo initially at 8mcg, currently 2mcg. IVF infusing as ordered. Labs drawn and sent - Ca and Mg repletion
ordered and administered (See MAR). Family at bedside.
[2024-12-12] VITALS (22 sets, daily range): BP systolic 96–118; BP diastolic 56–69; PULSE 81–84; O2SAT 96; BMI 28.0
--- NOTE | 2024-12-12 00:41 | PTCARENOTE ---
Levo off at 2350. No further changes in assessment.
[2024-12-12 03:44] LABS: Venous Blood Gas B.E. -6.6 mmol/L (-4 to +4); Venous Blood Gas O2 Sat % 100.0 %
[2024-12-12 03:45] LABS: Venous Blood Gas O2 Therapy O2
[2024-12-12] MEDS: ZOSYN 50 IV ×4 (03:45→20:33)
[2024-12-12 04:03] LABS: Hematocrit 35.4 % (37.0-47.0); Hemoglobin 11.8 g/dL (12.0-16.0); Mean Corp Hgb Conc. 33.3 g/dL (33.0-37.0); Mean Corpuscular Volume 95.4 fL (81.0-99.0); Platelet Count 52 10^3/uL (130-400); Red Cell Dist. Width 14.0 % (11.5-14.5)
[2024-12-12 04:10] LABS: Blood Urea Nitrogen 29 mg/dl (7-17); Calcium 9.0 mg/dl (8.4-10.2); Carbon Dioxide 19 mmol/L (22-30); Chloride 115 mmol/L (98-107); Estimated Creatinine Clearance 36 ml/min; Glucose 97 mg/dl (70-99); Potassium 4.4 mmol/L (3.5-5.1); Sodium 140 mmol/L (135-145); eGFR > 60.00
[2024-12-12 04:32] LABS: Magnesium 2.7 mg/dl (1.6-2.3)
[2024-12-12] MEDS: SODIUM BICARBONATE 1075 MEQ IV (05:04)
--- NOTE | 2024-12-12 05:41 | PTCARENOTE ---
AM labs resulted - bicarb gtt added. Levo remains off. Pt denies any pain, n/v. Afebrile
--- NOTE | 2024-12-12 07:23 | CON.INTV ---
Addendum entered and electronically signed by Inocencia Temple MD 12/12/24 11:37:
Patient successfully weaned off Levophed, hemodynamically stable
Stable for transfer out of ICU, vp of marketing service will sign off, please call as needed
Original Note:
Consultation
Consultation Request
Date/Time Consultation Requested: 12/11/2024
Date/Time Consultation Performed: 12/12/2024
Medical History
-
Chief Complaint: Abdominal pain, fever and chills
History of Present Illness:
Patient is a 84-year-old female with history of nephrolithiasis who presented to the emergency room from primary care provider's office in view of fever chills and low back pain. Symptoms started later in the evening on the day of presentation to
the emergency room. She was subsequently noted to be febrile to 102 degrees. Workup in the emergency room included a CT scan of her abdomen pelvis which showed an obstructive right sided proximal ureteral stone. Urology service was subsequently
contacted and patient was taken to the OR. She was also noted to have acute kidney injury as well as septic shock with elevated lactate. Patient had double-J stent placement and postop was admitted to the ICU in view of requirement for pressors
for septic shock. Development Educator consultation was requested for further input.
Past Medical History
Past Medical History: Reports Other (hx of HTN, CAD, SVT renal stones)
Past Surgical History: Reports Other (Radiofrequency Ablation therapy Lumbar spine Corticosteroid injection L hip)
Social History
Tobacco: Non-smoker
Alcohol: Occasional
Drug: None
Personal:
Living: With Family
Family History
Family History: Not pertinent
Allergies / Home Medications
Allergies / Home Medications
Allergies
Allergy/AdvReac Type Severity Reaction Status Date / Time
No Known Allergies Allergy Verified 12/11/24 13:06
Home Medications
�Medication �Instructions �Recorded �Confirmed �Last Taken �Type
Curamed 1 tab PO DAILY Supplement 07/25/21 12/11/24 02/01/22 History
Prevagen 1 tab PO DAILY Supplement 07/25/21 12/11/24 02/01/22 History
aspirin 81 mg chewable tablet 81 mg PO DAILY 07/29/21 12/11/24 02/01/22 Rx
atorvastatin 80 mg tablet 80 mg PO QPM #90 tabs 07/29/21 12/11/24 01/31/22 Rx
losartan 25 mg tablet 25 mg PO HS 02/01/22 12/11/24 02/01/22 History
acetaminophen 500 mg tablet 1,000 mg PO Q6HPRN PRN mild 12/11/24 12/11/24 Unknown History
pain/fever
acetaminophen 650 mg 650 mg PO Q8HPRN PRN mild 12/11/24 12/11/24 Unknown History
tablet,extended release pain/fever
carvedilol 12.5 mg tablet 12.5 mg PO BID 12/11/24 12/11/24 Unknown History
diphenhydramine 25 1 tab PO HSPRN PRN sleep 12/11/24 12/11/24 Unknown History
mg-acetaminophen 500 mg tablet
(Tylenol PM Extra Strength)
magnesium 250 mg tablet 250 mg PO DAILY 12/11/24 12/11/24 Unknown History
teriparatide 20 mcg/dose (560 20 mcg SC MOWEFR 12/11/24 12/11/24 Unknown History
mcg/2.24 mL) subcutaneous pen
injector (Forteo)
Review of Systems
-
Hematologic/Lymphatic: Other (All 14 systems reviewed and negative except as stated above in the history of present illness.)
Vitals / Labs / Diagnostic Testing
Vital Signs
Temp Pulse Resp BP Pulse Ox
98.3 F 62 16 97/56 97
12/12/24 01:20 12/12/24 06:30 12/12/24 06:30 12/12/24 06:00 12/12/24 06:30
Lab Data
12/12/24 03:32
12/12/24 03:32
Laboratory Results
12/11/24
20:56
PT 16.2 H
INR 1.27
APTT 30.4
Microbiology
12/11/24 13:18 Blood/Venous Blood Culture - Preliminary
Positive culture in progress
12/11/24 13:18 Blood/Venous Gram Stain - Preliminary
12/11/24 13:19 Blood/Venous Blood Culture - Preliminary
Positive culture in progress
12/11/24 13:19 Blood/Venous Gram Stain - Preliminary
12/11/24 14:15 Nasal Swab Influenza Types A & B (GABBY) - Final
Negative for Influenza A & B, NAAT
Negative results must be combined with clinical observations
and patient history.
Nucleic Acid Amplification test (NAAT)performed on the
[employer] platform.
Diagnostic Testing:
Physical Exam
-
HEENT: Normocephalic
Cardiovascular: S1/S2
Respiratory: Clear
GI: Soft and Non Distended
Neurology: Awake, Alert and Oriented
Skin: Warm
General: Comfortable
Assessment
-
#1. Septic shock with complicated UTI due to obstructive uropathy
- CT suggestive of right-sided 5.1 mm calculus in proximal right ureter. S/p cystoscopy and double-J stent placement with cross pus drainage noted. Urology service on case
- Gram-negative bacteremia noted on prelim cultures. Prior history of pansensitive E. coli in 06/2024
- WBC count elevated, slight improvement to 12.7 this morning.
- VBG with pH of 7.31, improving lactate from 2.8 on admission to 1.6 more recently.
- Clinically improving, weaned off Levophed. Discontinue IV fluids
- Encourage incentive spirometry in view of mild hypoxia and atelectasis
#2. RAULITO on admission
- Related to obstructive uropathy and shock
- Responded well to stent placement and improved drainage and IV fluids, creatinine down to 0.9 compared to 1.6 on admission
Other medical diagnoses:
- H/o CAD. s/p PCI in 07/2021
- HTN
DVT prophylaxis:
Critical Care time 58 mins -- The patient is admitted for acute critical illness for the treatment of vital organ failure and/or prevention of further life-threatening conditions. Total care includes time spent in review of history, physical exam,
medications, hemodynamic/ventilator parameters, laboratory data, imaging and discussion with house staff, pharmacy, respiratory therapy, senior power plant operator, and nursing.
Data:
CXR 11/2024: Mild pulmonary vascular congestion. Subsegmental atelectasis in the lung bases.
CT A/p 11/2024: Right-sided obstructive uropathy secondary to 5.1 mm calculus in the proximal right ureter. Superimposed infection to be excluded.
Multiple bilateral intrarenal calculi. Diverticulosis without acute diverticulitis. Linear and reticular interstitial thickening at the lung bases. Possible considerations include interstitial fibrotic changes, infectious or inflammatory process, or
possibly interstitial edema in the proper clinical setting.
ECHO 06/2024: Normal biventricular size and systolic function without regional wall motion abnormality.
Left ventricular ejection fraction by Lee's biplane method 60 to 65%.
Normal diastolic function.
Mild mitral regurgitation
Mild tricuspid regurgitation
Trileaflet aortic valve with mild aortic regurgitation
Estimated pulmonary artery systolic pressure 34 mmHg assuming a right atrial
pressure of 3 mmHg.
Aortic root size normal
No pericardial effusion
Lexiscan 03/2022: Normal perfusion imaging
LHC 07/2021: 1: Two-vessel coronary artery disease as described, RCA occlusion consistent with the infarct artery.
2: Mild left ventricular dysfunction.
3: Mild mitral regurgitation.
4: Successful 3.0/12 mm reggie point Xience V drug eluting stent to the mid RCA.
[2024-12-12] MEDS: LOW STRENGTH ASPIRIN 81 MG PO (08:08)
[2024-12-12] MEDS: HEPARIN 5000 UNITS SC ×2 (08:08→20:33)
--- NOTE | 2024-12-12 09:47 | PTCARENOTE ---
Patient now tele status. stopping all IV fluids. will work with PT.
--- NOTE | 2024-12-12 10:48 | W.PN.URO.CBU ---
Today's Communication / Plan
-
per hospitalist
Assessment / Plan
-
urosepsis due to obstructing stone s/p stent pt off pressors afebrile await cxs will if stable remove burgess am wed
Diagnosis
-
Date of Service: December 12, 2024
-
Patient Diagnosis:
Post Op Day:
Patient Diagnosis:sepsis syndrome hypotension due to obstructing rt prox urertal stone
Post Op Day:
Subjective
-
improving feels more baseline today
Objective
-
Vital Signs
Temp Pulse Resp BP Pulse Ox
97.9 F 80 18 116/69 95
12/12/24 08:03 12/12/24 09:45 12/12/24 09:45 12/12/24 09:00 12/12/24 09:45
Intake and Output
12/11/24 12/12/24 12/13/24
06:59 06:59 06:59
Intake Total 1352.5 / 1427.5 150 / 150
Output Total 1649 / 1874 225 / 225
Balance -297.5 / -447.5 -75 / -75
Intake:
IV fluids (Total) 1122.5 / 1197.5 150 / 150
Bicarb 75 / 150 150 / 150
Levo 47.5 / 47.5
normal saline 1000 / 1000
IV piggybacks 230 / 230
Output:
Urine, Burgess 1649 / 1874 225 / 225
Laboratory Results
12/12/24 03:32
12/12/24 03:32
Review of Systems
-
: Difficulty Voiding
Physical Exam
-
General - well developed, well nourished, no acute distress
Chest - clear bilaterally
Abdomen - soft, non-tender, positive bowel sounds, no CVAT, no incisional pain or distention
Genitalia - normal
Rectal - normal
Skin - warm & dry with no rash
Neuro - AOx3, no motor deficits
Extremities - no clubbing, no cyanosis, no edema
Incision - clean, dry
Dressing - clean, dry, intact
Care Review
Data Reviewed
Discussed with: Nursing and Family ([facility])
CT Scan: Image Pers Reviewed
--- NOTE | 2024-12-12 11:09 | W.PN.HOSP.TC ---
Today's Communication/Plan
-
stable for downgrade to Tele
cont empiric abx Zosyn
Connor as per Urology
Wean O2 supplementation as tolerated
PT/OT
home Coreg resumed at reduced dose w/ holding parameters for now
Assessment / Plan
Assessment / Plan
Physical Exam
General: No pallor, cyanosis, or jaundice.
HEENT: Throat clear. PERRLA Normocephalic atraumatic
NECK: Supple. No JVD Carotid Bruits
RESPIRATORY: Lungs clear to auscultation. No crackles wheezes stridor. Stable respiratory status on 2L NC
CVS: S1, S2 normal. RRR. No murmur, rub or gallop.
ABDOMEN: Soft, non-tender. No distension. BS+/normal. No flank/CVA angle tenderness
EXTREMITIES: No peripheral cyanosis or edema.
HONEY BLENDER: AOx3 conversant coherent
Psych: calm
84F HTN CAD hx SVT renal stones here with Septic Shock 2/2 obstructing right ureter kidney stone.
Septic Shock (leukocytosis, tachycardia, UTI, lactic acidosis, required pressor support)
acute complicated UTI
- CT: Right-sided obstructive uropathy secondary to 5.1 mm calculus in the proximal right ureter. Likely Superimposed infection
- Admitted to ICU downgraded to Tele next day after weaning off pressor support
- completed sepsis protocol IVF; lactate improved
- cont empiric Zosyn pending culture sensitivities (received Vanc/Cefepime in ER)
- blood and urine cx's growing E. coli
- Urology consult appreciated s/p OR stent and Connor placement 12/11, possible TOV tomorrow 12/13 Wed
Acute Hypoxic Insufficiency
12/12/24 appreciated small loculated right pleural effusion and mild left lower lobe probable atelectasis, possible developing pna
cont abx as above, however low suspicion pna at this time
encourage Incentive spirometer use
wean O2 supplementation as tolerated
RAULITO, obstructive
-resolved
-tolerating diet
-IVF support completed
-cont monitoring
Essential HTN
- cont hold home losartan d/t recent shock as above, can consider restarting if bp elevates
- resumed home Coreg at reduced dose 3.125 mg BID w/ holding parameters
CAD
hx of SVT
- continue home ASA/Statin
- reduced dose Coreg as above
PT/OT appreciated home health
DVT ppx: SC Heparin
Code: Full
discussed with patient and patient's Paul
I spent a total of 55 minutes with the patient or on the floor. More than 50% of this time involved counseling and coordination of care.
Anticipated Discharge: 24 - 48 hours
Subjective/Interval History
-
Date of Service: December 12, 2024
No acute distress resting comfortably in bed. Stable respiratory status on low dose oxygen supplementation. Reports abd/flank pain resolved.
Objective Data
-
Labs:
Laboratory Results
12/12/24
03:32
WBC 12.7 H
Hgb 11.8 L
Hct 35.4 L
Plt Count 52 L
Sodium 140
Potassium 4.4
Chloride 115 H
Carbon Dioxide 19 L
BUN 29 H
Creatinine 0.9
Glucose 97
Calcium 9.0 D
Vital Signs:
Vital Signs
Temp Pulse Resp BP Pulse Ox
97.9 F 80 18 116/69 95
12/12/24 08:03 12/12/24 09:45 12/12/24 09:45 12/12/24 09:00 12/12/24 09:45
I&O
12/11/24 12/12/24 12/13/24
06:59 06:59 06:59
Intake Total 1352.5 / 1427.5 600 / 600
Output Total 1650 / 1875 225 / 225
Balance -297.5 / -447.5 375 / 375
--- NOTE | 2024-12-12 11:38 | CM ---
Initial assessment completed with patient who lives with her in a 2 story home with no basement, B/B on 2nd, 1/2 bath on 1st, 2 steps to enter. ENDBANDER patient was independent in ADL's and ambulation, drives. Does have a RW , SPC and walking
sticks in the home. No in-home services. Does have a HC POA. No VA benefits. No psychiatric hospitalizations. PA is Toshia Gardiner in , practice unknown. [facility]acy is [facility] [place]. Discharge POC: Anticipate home with no needs if burgess is
pulled. If not, consider HH RN.
--- NOTE | 2024-12-12 14:56 | PTCARENOTE ---
Received patient from ICU via wheelchair. AAOx3, ambulated with assist to bed. Connor Catheter noted with clear, yellow output. Assessed and oriented to room. Call rosa in close reach.
[2024-12-12] MEDS: LIPITOR 80 MG PO (16:59)
[2024-12-12] MEDS: COREG 3.125 MG PO (20:35)
[2024-12-13] MEDS: ZOSYN 50 IV ×2 (02:50→08:54)
--- NOTE | 2024-12-13 02:50 | DOWNTIME ---
There was a [employer] Client Manager [place] Downtime on 12/13/2024 from 0100 to 12/13/2024 at 0215. Downtime documentation of patient's care, including medication administrations, has been reconciled in the electronic record per guidelines. Refer to the
patient's paper chart under the miscellaneous tab to see printed paper medication records and downtime forms.
[2024-12-13 03:55] VITALS: BP 116/69
[2024-12-13 07:00] VITALS: BP 125/80
--- NOTE | 2024-12-13 07:27 | W.PN.HOSP.TC ---
Addendum entered and electronically signed by Chay Akhtar MD 12/14/24 07:38:
Hypocalcemia
repleted
resolved
Original Note:
Today's Communication/Plan
-
cont abx
protonix, maalox prn
possible discharge tomorrow if remains stable, cont to improve
Assessment / Plan
Assessment / Plan
Physical Exam
General: No pallor, cyanosis, or jaundice.
HEENT: Throat clear. PERRLA Normocephalic atraumatic
NECK: Supple. No JVD Carotid Bruits
RESPIRATORY: Lungs clear to auscultation. No crackles wheezes stridor. Stable respiratory status on 2L NC
CVS: S1, S2 normal. RRR. No murmur, rub or gallop.
ABDOMEN: Soft, non-tender. No distension. BS+/normal. No flank/CVA angle tenderness
EXTREMITIES: No peripheral cyanosis or edema.
SUPERVISOR INSTRUMENT MECHANICS: AOx3 conversant coherent
Derm: small scattered pinpoint skin lesions noted lower ext ankles b/l
Psych: calm
84F HTN CAD hx SVT renal stones here with Septic Shock 2/2 obstructing right ureter kidney stone.
Septic Shock (leukocytosis, tachycardia, UTI, lactic acidosis, required pressor support)
acute complicated UTI
- CT: Right-sided obstructive uropathy secondary to 5.1 mm calculus in the proximal right ureter. Likely Superimposed infection
- Admitted to ICU downgraded to Tele next day after weaning off pressor support
- completed sepsis protocol IVF; lactate improved
- empiric Zosyn (received Vanc/Cefepime in ER) transitioned to Augmentin following sensitivity results
- blood and urine cx's growing E. coli pansensitive
- Urology consult appreciated s/p OR stent and Connor placement 12/11, TOV 12/13 Passed
Acute Hypoxic Insufficiency
12/12/24 appreciated small loculated right pleural effusion and mild left lower lobe probable atelectasis, possible developing pna
cont abx as above, however low suspicion pna at this time
encourage Incentive spirometer use
weaned off O2 supplementation
resolved
RAULITO, obstructive
-resolved
-tolerating diet
-IVF support completed
-cont monitoring
Essential HTN
- cont hold home losartan d/t recent shock as above, resumed with improvement in bp
- resumed home Coreg at reduced dose 3.125 mg BID w/ holding parameters titrated up to 6.25 mg bid
CAD
hx of SVT
- continue home ASA/Statin
- reduced dose Coreg as above
Brief episode of CP self limited 12/13
-EKG no acute changes noted in comparison to EKG Jan 2022
-troponin neg
-possibly GERD related vs pill esophagitis
-Protonix 40 gm daily, Maalox prn
small scattered pinpoint skin lesions noted lower ext ankles b/l
-patient recently came back from a trip outdoors few weeks ago
-painless, non-itching
-suspect healing past outdoor bug bites, Monitor for now.
PT/OT appreciated home health
DVT ppx: SC Heparin
Code: Full
I spent a total of 45 minutes with the patient or on the floor. More than 50% of this time involved counseling and coordination of care.
Anticipated Discharge: Within 24 hours
Subjective/Interval History
-
Date of Service: December 13, 2024
No acute distress sitting up comfortably in bed. Overall reports feeling well. Passed trial of void
Objective Data
-
Labs:
Laboratory Results
12/13/24
06:50
WBC Pending
Hgb Pending
Hct Pending
Plt Count Pending
Sodium Pending
Potassium Pending
Chloride Pending
Carbon Dioxide Pending
BUN Pending
Creatinine Pending
Glucose Pending
Calcium Pending
Vital Signs:
Vital Signs
Temp Pulse Resp BP Pulse Ox
98.5 F 83 16 116/69 93
12/13/24 03:55 12/13/24 03:55 12/13/24 03:55 12/13/24 03:55 12/13/24 03:55
I&O
12/12/24 12/13/24 12/14/24
06:59 06:59 06:59
Intake Total 1352.5 / 1427.5 1320 / 1900 580 / 580
Output Total 1650 / 1875 625 / 2275 1650 / 1650
Balance -297.5 / -447.5 695 / -375 -1070 / -1070
[2024-12-13 08:24] LABS: Hematocrit 34.2 % (37.0-47.0); Hemoglobin 11.5 g/dL (12.0-16.0); Mean Corp Hgb Conc. 33.6 g/dL (33.0-37.0); Mean Corpuscular Volume 94.0 fL (81.0-99.0); Platelet Count 63 10^3/uL (130-400); Red Cell Dist. Width 13.9 % (11.5-14.5)
[2024-12-13] MEDS: LOW STRENGTH ASPIRIN 81 MG PO (08:54)
[2024-12-13] MEDS: HEPARIN 5000 UNITS SC ×2 (08:54→19:56)
[2024-12-13] MEDS: COREG 3.125 MG PO ×2 (08:54→19:55)
[2024-12-13] MEDS: TYLENOL 1000 MG PO (08:59)
[2024-12-13 09:17] LABS: Blood Urea Nitrogen 26 mg/dl (7-17); Calcium 8.7 mg/dl (8.4-10.2); Carbon Dioxide 24 mmol/L (22-30); Chloride 111 mmol/L (98-107); Estimated Creatinine Clearance 40 ml/min; Glucose 90 mg/dl (70-99); Magnesium 2.1 mg/dl (1.6-2.3); Potassium 3.9 mmol/L (3.5-5.1); Sodium 139 mmol/L (135-145); eGFR > 60.00
--- NOTE | 2024-12-13 09:34 | PN.CDI ---
CDI
- -
CDI:
Physician Documentation Request
Admit Date: 12/11/24 18:21
Dear Doctor Hermilo,
Clinical Indicators:
Patient admitted with sepsis with shock.
12/11: Calcium Gluconate 3,000 mg IV rider x 1.
Magnesium Sulfate 2 gm IV rider x 1.
Ca/Mag levels:
12/11/24
20:56
Calcium 6.8 L* D
Magnesium 1.5 L
Based on the above, could you clarify in the progress notes, the appropriate diagnosis, if significant, that supports the above abnormalities and additional evaluation, monitoring and/or treatment rendered:
Hypocalcemia/hypomagnesemia
Abnormal lab values, clinically insignificant
Other, please specify
Use of terms such as suspected, likely, concern for, or probable (associated with a specific diagnosis that is being evaluated, monitored, or treated as if it exists) are acceptable and can be coded in the inpatient setting, when documented at the
time of discharge.
Thank you,
SHASHANK Pulido RN
CDI Specialist
available via tiger text
Please use your independent medical judgment in providing your response.
--- NOTE | 2024-12-13 09:41 | W.PN.URO.CBU ---
Today's Communication / Plan
-
remove burgess please
Assessment / Plan
-
urosepsis due to obstructing stone s/p stent pt off pressors afebrile await cxs will if stable remove burgess am wed
Diagnosis
-
Date of Service: December 13, 2024
-
Patient Diagnosis:
Post Op Day:
Patient Diagnosis:
Post Op Day:
Patient Diagnosis:sepsis syndrome hypotension due to obstructing rt prox urertal stone
Post Op Day:
Subjective
-
much better
Objective
-
Vital Signs
Temp Pulse Resp BP Pulse Ox
98.4 F 79 16 125/80 95
12/13/24 07:00 12/13/24 07:00 12/13/24 07:00 12/13/24 07:00 12/13/24 07:00
Intake and Output
12/12/24 12/13/24 12/14/24
06:59 06:59 06:59
Intake Total 1352.5 / 1427.5 1320 / 1900 580 / 580
Output Total 1650 / 1875 625 / 2275 1650 / 1650
Balance -297.5 / -447.5 695 / -375 -1070 / -1070
Intake:
Oral fluids 1170 / 1650 480 / 480
IV fluids (Total) 1122.5 / 1197.5 150 / 150
Bicarb 75 / 150 150 / 150
Levo 47.5 / 47.5
normal saline 1000 / 1000
IV piggybacks 230 / 230 0 / 100 100 / 100
Output:
Urine, Burgess 1650 / 1875 625 / 2275 1650 / 1650
Laboratory Results
12/13/24 06:50
12/13/24 06:50
Review of Systems
-
: No Symptoms
Physical Exam
-
General - well developed, well nourished, no acute distress
Chest - clear bilaterally
Abdomen - soft, non-tender, positive bowel sounds, no CVAT, no incisional pain or distention
Genitalia - normal
Rectal - normal
Skin - warm & dry with no rash
Neuro - AOx3, no motor deficits
Extremities - no clubbing, no cyanosis, no edema
Incision - clean, dry
Dressing - clean, dry, intact
Care Review
Data Reviewed
Discussed with: Nursing
CT Scan: Image Pers Reviewed
[2024-12-13 11:00] VITALS: BP 137/79
--- NOTE | 2024-12-13 11:46 | CM ---
Reviewed chart. Met with pt bedside. Shared with pt that PT rec Home Care at discharge. CM provided Medicare Compare report for Home health agencies. She want to discuss with her before she makes a decision.
Remains on IV ABX. On room air
Plan: Home with Home health
[2024-12-13] MEDS: AUGMENTIN 875 MG/125 MG 1 TABLET PO ×2 (12:59→19:55)
[2024-12-13] MEDS: ULTRAM 50 MG PO (12:59)
[2024-12-13 15:00] VITALS: BP 141/72
[2024-12-13] MEDS: LIPITOR 80 MG PO (17:16)
--- NOTE | 2024-12-13 19:13 | PTCARENOTE ---
Patient complaining of chest pain. Lasted for 5 minutes. Completely gone at present time. EKG done. Dr Akhtar made aware. Orders for troponin to be drawn. Will continue to monitor closely.
[2024-12-13 19:54] VITALS: BP 152/86
[2024-12-13] MEDS: FLORASTOR 250 MG PO (19:56)
[2024-12-13] MEDS: PROTONIX 40 MG PO (19:56)
[2024-12-13 20:24] LABS: Troponin I < 0.012 ng/ml
[2024-12-13 23:34] VITALS: BP 137/77
[2024-12-14] VITALS (7 sets, daily range): BP systolic 119–154; BP diastolic 66–91; PULSE 92
--- NOTE | 2024-12-14 07:13 | W.PN.HOSP.TC ---
Today's Communication/Plan
-
cont abx
probiotic
Coreg titrated back up to home dose
resumed home losartan
Neutra-phos
Possible discharge tomorrow if remains stable.
Assessment / Plan
Assessment / Plan
Physical Exam
General: No pallor, cyanosis, or jaundice.
HEENT: Throat clear. PERRLA Normocephalic atraumatic
NECK: Supple. No JVD Carotid Bruits
RESPIRATORY: Lungs clear to auscultation. No crackles wheezes stridor. Stable respiratory status on room air
CVS: S1, S2 normal. RRR. No murmur, rub or gallop.
ABDOMEN: Soft, non-tender. No distension. BS+/normal. No flank/CVA angle tenderness
EXTREMITIES: No peripheral cyanosis or edema.
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
Derm: small scattered pinpoint skin lesions noted lower ext ankles b/l, improving
Psych: calm
84F HTN CAD hx SVT renal stones here with Septic Shock 2/2 obstructing right ureter kidney stone.
Septic Shock (leukocytosis, tachycardia, UTI, lactic acidosis, required pressor support)
acute complicated UTI
- CT: Right-sided obstructive uropathy secondary to 5.1 mm calculus in the proximal right ureter. Likely Superimposed infection
- Admitted to ICU downgraded to Tele next day after weaning off pressor support
- completed sepsis protocol IVF; lactate improved
- empiric Zosyn (received Vanc/Cefepime in ER) transitioned to Augmentin following sensitivity results
-cont probiotics
- blood and urine cx's growing E. coli pansensitive
-repeat blood culture NGTD
- Urology consult appreciated s/p OR stent and Connor placement 12/11, TOV 12/13 Passed
Acute Hypoxic Insufficiency
12/12/24 appreciated small loculated right pleural effusion and mild left lower lobe probable atelectasis, possible developing pna
cont abx as above, however low suspicion pna at this time
encourage Incentive spirometer use
weaned off O2 supplementation
resolved
RAULITO, obstructive
-resolved
-tolerating diet
-IVF support completed
-cont monitoring
Essential HTN
- home losartan held d/t recent shock as above, resumed with improvement in bp
- resumed home Coreg at reduced dose 3.125 mg BID w/ holding parameters titrated back up to home dose 12.5 mg bid
CAD
hx of SVT
- continue home ASA/Statin
- Coreg resumed as above
Brief episode of CP self limited 12/13
-EKG no acute changes noted in comparison to EKG Jan 2022
-troponin neg
-possibly GERD related vs pill esophagitis
-Protonix 40 gm daily, Maalox prn
small scattered pinpoint skin lesions noted lower ext ankles b/l
-patient recently came back from a trip outdoors few weeks ago
-painless, non-itching
-suspect healing past outdoor bug bites, Monitor for now, improving
Hypocalcemia
repleted
resolved
Hypophosphatemia
neutra-phos supplementation for now
Hypoglycemia
asymptomatic tolerating diet
non-diabetic
monitor for now
PT/OT appreciated home health
DVT ppx: SC Heparin
Code: Full
I spent a total of 45 minutes with the patient or on the floor. More than 50% of this time involved counseling and coordination of care.
Anticipated Discharge: Within 24 hours
Subjective/Interval History
-
Date of Service: December 14, 2024
No acute distress. Overall reports feeling well. No new episodes of chest pain since yesterday. Lower ext skin lesions appear improved.
Objective Data
-
Labs:
Laboratory Results
12/14/24
06:00
WBC Pending
Hgb Pending
Hct Pending
Plt Count Pending
Sodium Pending
Potassium Pending
Chloride Pending
Carbon Dioxide Pending
BUN Pending
Creatinine Pending
Glucose Pending
Calcium Pending
Vital Signs:
Vital Signs
Temp Pulse Resp BP Pulse Ox
98.4 F 82 18 142/89 94
12/14/24 03:36 12/14/24 03:36 12/14/24 03:36 12/14/24 03:36 12/14/24 03:36
I&O
12/13/24 12/14/24 12/15/24
06:59 06:59 06:59
Intake Total 1320 / 1900 1060 / 1060
Output Total 625 / 2275 3150 / 3150
Balance 695 / -375 -2089 / -2089
[2024-12-14] MEDS: AUGMENTIN 875 MG/125 MG 1 TABLET PO ×2 (09:40→20:09)
[2024-12-14] MEDS: PROTONIX 40 MG PO (09:40)
[2024-12-14] MEDS: COREG 6.25 MG PO (09:41)
[2024-12-14] MEDS: HEPARIN 5000 UNITS SC ×2 (09:42→20:07)
[2024-12-14] MEDS: FLUSH (NSS) 1 FLUSH IV ×2 (09:42→09:43)
[2024-12-14] MEDS: FLORASTOR 250 MG PO ×2 (09:42→20:09)
[2024-12-14] MEDS: LOW STRENGTH ASPIRIN 81 MG PO (09:42)
[2024-12-14 09:49] LABS: Hematocrit 38.1 % (37.0-47.0); Hemoglobin 12.5 g/dL (12.0-16.0); Mean Corp Hgb Conc. 32.8 g/dL (33.0-37.0); Mean Corpuscular Volume 95.3 fL (81.0-99.0); Platelet Count 69 10^3/uL (130-400); Red Cell Dist. Width 13.8 % (11.5-14.5)
[2024-12-14] MEDS: TYLENOL 1000 MG PO (09:52)
[2024-12-14 11:10] LABS: Blood Urea Nitrogen 23 mg/dl (7-17); Carbon Dioxide 25 mmol/L (22-30); Chloride 108 mmol/L (98-107); Estimated Creatinine Clearance 54 ml/min; Glucose 51 mg/dl (70-99); Potassium 4.0 mmol/L (3.5-5.1); Sodium 139 mmol/L (135-145); eGFR > 60.00
[2024-12-14 11:11] LABS: Calcium 9.0 mg/dl (8.4-10.2); Magnesium 2.0 mg/dl (1.6-2.3)
--- NOTE | 2024-12-14 11:48 | CM ---
REveiwed chart. Met with pt and bedside. IMM given and placed on chart. PT rec home care .Informed pt the she has been accepted by [facility] ( pt choice) and that they will call her after she is discharged to set up an appt.
Possible D/C tomorrow. will take her home in private car.
Plan: Home with [facility]
[2024-12-14] MEDS: NEUTRA-PHOS POWDER PACKET 250 MG PO ×3 (13:56→21:01)
--- NOTE | 2024-12-14 14:31 | W.PN.URO.CBU ---
Today's Communication / Plan
-
NIONE
Assessment / Plan
-
urosepsis due to obstructing stone s/p stent pt off pressors afebrile POS BOOD CXS WILL PO TARGETED ABS WILL CALL OFFICE AFTER DISCHARGE ANS SCHEDULE DEFINIYIVE SURGERY
Diagnosis
-
Date of Service: December 14, 2024
-
Patient Diagnosis:
Post Op Day:
Patient Diagnosis:
Post Op Day:
Patient Diagnosis:
Post Op Day:
Patient Diagnosis:sepsis syndrome hypotension due to obstructing rt prox urertal stone
Post Op Day:
Subjective
-
IMPROVING DAILY
Objective
-
Vital Signs
Temp Pulse Resp BP Pulse Ox
97.7 F 81 16 119/66 95
12/14/24 11:00 12/14/24 11:00 12/14/24 11:00 12/14/24 11:00 12/14/24 11:00
Intake and Output
12/13/24 12/14/24 12/15/24
06:59 06:59 06:59
Intake Total 1320 / 1900 1060 / 1060
Output Total 625 / 2275 3150 / 3150
Balance 695 / -375 -2089 / -2089
Intake:
Oral fluids 1170 / 1650 960 / 960
IV fluids (Total) 150 / 150
Bicarb 150 / 150
IV piggybacks 0 / 100 100 / 100
Output:
Urine, Connor 625 / 2275 2450 / 2450
Urine, Voided 700 / 700
Other:
How many times incontinent 1
SATURATED amount urine
Number of approximated MODERATE 1
amounts of urine
Number of approximated LARGE 1
amounts of urine
Laboratory Results
12/14/24 07:31
12/14/24 07:31
Review of Systems
-
: Dysuria and Frequency
Physical Exam
-
General - well developed, well nourished, no acute distress
Chest - clear bilaterally
Abdomen - soft, non-tender, positive bowel sounds, no CVAT, no incisional pain or distention
Genitalia - normal
Rectal - normal
Skin - warm & dry with no rash
Neuro - AOx3, no motor deficits
Extremities - no clubbing, no cyanosis, no edema
Incision - clean, dry
Dressing - clean, dry, intact
[2024-12-14] MEDS: LIPITOR 80 MG PO (17:22)
[2024-12-14] MEDS: COREG 12.5 MG PO (20:08)
[2024-12-14] MEDS: COZAAR 25 MG PO (21:01)
[2024-12-15 03:26] VITALS: BP 146/85
[2024-12-15 08:01] VITALS: BP 144/90
--- NOTE | 2024-12-15 08:33 | W.PN.HOSP.TC ---
Today's Communication/Plan
-
discharge
Assessment / Plan
Assessment / Plan
Physical Exam
General: No pallor, cyanosis, or jaundice.
HEENT: Throat clear. PERRLA Normocephalic atraumatic
NECK: Supple. No JVD Carotid Bruits
RESPIRATORY: Lungs clear to auscultation. No crackles wheezes stridor. Stable respiratory status on room air
CVS: S1, S2 normal. RRR. No murmur, rub or gallop.
ABDOMEN: Soft, non-tender. No distension. BS+/normal. No flank/CVA angle tenderness
EXTREMITIES: No peripheral cyanosis or edema.
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
Derm: small scattered pinpoint skin lesions noted lower ext ankles b/l, resolving
Psych: calm
84F HTN CAD hx SVT renal stones here with Septic Shock 2/2 obstructing right ureter kidney stone.
Septic Shock (leukocytosis, tachycardia, UTI, lactic acidosis, required pressor support)
acute complicated UTI
- CT: Right-sided obstructive uropathy secondary to 5.1 mm calculus in the proximal right ureter. Likely Superimposed infection
- Admitted to ICU downgraded to Tele next day after weaning off pressor support
- completed sepsis protocol IVF; lactate improved
- empiric Zosyn (received Vanc/Cefepime in ER) transitioned to Augmentin following sensitivity results
-cont probiotics
- blood and urine cx's growing E. coli pansensitive
- repeat blood culture NGTD
- Urology consult appreciated s/p OR stent and Connor placement 12/11, TOV 12/13 Passed
Acute Hypoxic Insufficiency
12/12/24 appreciated small loculated right pleural effusion and mild left lower lobe probable atelectasis, possible developing pna
cont abx as above, however low suspicion pna at this time
encourage Incentive spirometer use
weaned off O2 supplementation
resolved
RAULITO, obstructive
-resolved
-tolerating diet
-IVF support completed
Essential HTN
- home losartan held d/t recent shock as above, resumed with improvement in bp
- resumed home Coreg at reduced dose 3.125 mg BID w/ holding parameters titrated back up to home dose 12.5 mg bid
CAD
hx of SVT
- continue home ASA/Statin
- Coreg resumed as above
Brief episode of CP self limited 12/13
-EKG no acute changes noted in comparison to EKG Jan 2022
-troponin neg
-possibly GERD related vs pill esophagitis
-Protonix 40 gm daily, Maalox prn (has not required)
-no new episodes chest pain
small scattered pinpoint skin lesions noted lower ext ankles b/l
-patient recently came back from a trip outdoors few weeks ago
-painless, non-itching
-suspect healing past outdoor bug bites
-resolving
Hypocalcemia
repleted
resolved
Hypophosphatemia
resolved
neutra-phos supplementation completed
Hypoglycemia
asymptomatic tolerating diet
non-diabetic
monitor for now
PT/OT appreciated home health
DVT ppx: SC Heparin
Code: Full
Total Time Preparing Discharge ___40____ minutes including examination of the patient, summary of the hospital stay, instructions for continuing care to all relevant caregivers; and preparation of discharge records, prescriptions, and referral
forms if necessary.
Anticipated Discharge: Today
Subjective/Interval History
-
Date of Service: December 15, 2024
Seen and examined at bedside in no acute distress sitting up comfortably in chair. overall reports feeling well. Denies new acute issues at this time. Looking forward to going home.
Objective Data
-
Labs:
Laboratory Results
12/15/24
07:23
WBC Pending
Hgb Pending
Hct Pending
Plt Count Pending
Sodium Pending
Potassium Pending
Chloride Pending
Carbon Dioxide Pending
BUN Pending
Creatinine Pending
Glucose Pending
Calcium Pending
Vital Signs:
Vital Signs
Temp Pulse Resp BP Pulse Ox
99.3 F 88 18 144/90 94
12/15/24 08:01 12/15/24 08:01 12/15/24 08:01 12/15/24 08:01 12/15/24 08:01
I&O
12/14/24 12/15/24 12/16/24
06:59 06:59 06:59
Intake Total 1060 / 1060 1080 / 1080
Output Total 3150 / 3150 3175 / 3175 600 / 600
Balance -2090 / -2090 -2095 / -2095 -600 / -600
[2024-12-15 08:36] LABS: Hematocrit 39.0 % (37.0-47.0); Hemoglobin 13.2 g/dL (12.0-16.0); Mean Corp Hgb Conc. 33.8 g/dL (33.0-37.0); Mean Corpuscular Volume 94.2 fL (81.0-99.0); Platelet Count 75 10^3/uL (130-400); Red Cell Dist. Width 13.5 % (11.5-14.5)
[2024-12-15 09:13] LABS: Blood Urea Nitrogen 14 mg/dl (7-17); Calcium 8.4 mg/dl (8.4-10.2); Carbon Dioxide 30 mmol/L (22-30); Chloride 106 mmol/L (98-107); Estimated Creatinine Clearance 54 ml/min; Glucose 75 mg/dl (70-99); Magnesium 1.7 mg/dl (1.6-2.3); Potassium 3.5 mmol/L (3.5-5.1); Sodium 139 mmol/L (135-145); eGFR > 60.00
[2024-12-15] MEDS: FLORASTOR 250 MG PO (09:47)
[2024-12-15] MEDS: COREG 12.5 MG PO (09:47)
[2024-12-15] MEDS: PROTONIX 40 MG PO (09:47)
[2024-12-15] MEDS: NEUTRA-PHOS POWDER PACKET 250 MG PO (09:47)
[2024-12-15] MEDS: HEPARIN 5000 UNITS SC (09:48)
[2024-12-15] MEDS: LOW STRENGTH ASPIRIN 81 MG PO (09:48)
[2024-12-15] MEDS: FLUSH (NSS) 1 FLUSH IV ×2 (09:48→09:49)
[2024-12-15] MEDS: AUGMENTIN 875 MG/125 MG 1 TABLET PO (09:48)
--- NOTE | 2024-12-15 11:32 | CM ---
Chart reviewed. Met with patient who anticipates being discharged today. will pick her up. [facility] aware of possible DC today.
Plan.Home with [facility]
[2024-12-15 11:44] VITALS: BP 154/88
--- NOTE | 2024-12-15 14:27 | W.DCSUMMARY ---
Discharge Summary
Discharge Data
Date of Admission: 12/11/24
Date of Discharge: 12/15/24
-
Pending Results: Yes (official culture results)
Discharge Plan
-
Patient Disposition: Home with Home Care
Discharge Diagnosis/Procedures: Septic Shock Resolved
Acute complicated Urinary Tract Infection
Right-sided obstructive uropathy secondary to 5.1 mm calculus in the proximal right ureter
Status post Right Ureter Stent placement
Acute Hypoxic Insufficiency resolved
Small Right Pleural Effusion
Acute Kidney Injury Resolved
Hypertension
Suspected GERD
Condition: Good
Diet: Low Cholesterol and 2 Gram Sodium
Activity: As tolerated and With Walker
Driving Restrictions: As prior to admission
Bathing Restrictions: None
Blood Work: Repeat CBC and BMP with primary care provider in 1 week of discharge.
Others Tests: Repeat Chest X-ray with primary care provider in 1 month of discharge.
Other Services: PT and OT
Activity Restrictions/Additional Instructions:
Follow up with primary care provider in 1 week of discharge and Urology in 1-2 weeks of discharge.
Augmentin prescribed to complete treatment of complicated urinary tract infection. 12/24/24 is your last day for antibiotics.
Probiotic prescribed to promote gut health while on antibiotics. Ok to discontinue when off antibiotics. Probiotics are also available over the counter.
Protonix prescribed for suspected GERD causing atypical chest pain and cough.
Please take medications as prescribed/recommended and follow up with primary care provider and/or other healthcare provider involved in your care for refills and/or further adjustment to your medication regimen as necessary.
Referrals:
Toshia Gardiner PA-C [Family Provider, Internal Medicine] - in one week
Lobo Gary MD [Active, Urology] - in one to two weeks
Referral Note: call dr gary [phone] to set up next phase treatment Expect frequency urgency flank pain and blood in urine whole stent inplace do not expect fever chills so go to er if fever chills
Prescriptions:
New
amoxicillin-pot clavulanate 875-125 mg Tablet
1 tab PO Q12 Qty: 19 0RF
Rx Instructions:
12/24/24 last day for antibiotics
pantoprazole 40 mg Tablet,Delayed Release (Dr/Ec)
40 mg PO DAILY Qty: 30 0RF
Saccharomyces boulardii 250 mg Capsule
250 mg PO BID Qty: 19 0RF
Rx Instructions:
To promote gut health while on antibiotics
Ok to discontinue when off antibiotics
Continued
Curamed
1 tab PO DAILY
Patient Comments:
turmeric
Prevagen
1 tab PO DAILY
Patient Comments:
pt does not know dose
atorvastatin 80 MG tablet
80 mg PO QPM Qty: 90 3RF
aspirin 81 MG tablet,chewable
81 mg PO DAILY 0RF
losartan 25 mg Tablet
25 mg PO HS
carvedilol 12.5 mg tablet
12.5 mg PO BID
acetaminophen 500 mg Tablet
1,000 mg PO Q6HPRN PRN (Reason: mild pain/fever)
diphenhydramine-acetaminophen [Tylenol PM Extra Strength] 25-500 mg Tablet
1 tab PO HSPRN PRN (Reason: sleep)
magnesium 250 mg Tablet
250 mg PO DAILY
teriparatide [Forteo] 20 mcg/dose (560mcg/2.24mL) pen injector
20 mcg SC MOWEFR
Discontinued
acetaminophen 650 mg Tablet Extended Release
650 mg PO Q8HPRN PRN (Reason: mild pain/fever)
Discharge Orders:
Discharge Patient (As Directed); Ordered 12/15/24
Ordered By: Chay Akhtar
Discharge Date and Time
Print Language: KOSOVAN
[2024-12-15 15:10] VITALS: BP 141/89
== END 2024-12-15 15:53 | disposition home health service (06) | DRG 853 ==
LOC: 4 EAST ACU 18:21
PROVIDERS: Emergency Medicine; Nurse Practitioner Primary Care; Registered Nurse; ADMITTING PHYSICIAN Internal Medicine; ATTENDING PHYSICIAN Internal Medicine; CONSULT PHYSICIAN Internal Medicine; CONSULT PHYSICIAN Specialist; EMERGENCY PHYSICIAN Emergency Medicine; FAMILY PHYSICIAN Physician Assistant
PROC: 0T768DZ Dilation of Right Ureter with Intraluminal Device, Via Natural or Artificial Opening Endoscopic (ICD-10-PCS; 2024-12-11)
PROC: BT1D1ZZ Fluoroscopy of Right Kidney, Ureter and Bladder using Low Osmolar Contrast (ICD-10-PCS; 2024-12-11)
DX: A41.51 Sepsis due to Escherichia coli [E. coli] (principal); R65.21 Severe sepsis with septic shock; I47.10 Supraventricular tachycardia, unspecified; N17.9 Acute kidney failure, unspecified; N13.6 Pyonephrosis; E87.20 Acidosis, unspecified; J90 Pleural effusion, not elsewhere classified; I10 Essential (primary) hypertension; I25.10 Atherosclerotic heart disease of native coronary artery without angina pectoris; E78.00 Pure hypercholesterolemia, unspecified; D69.6 Thrombocytopenia, unspecified; D69.2 Other nonthrombocytopenic purpura; M81.0 Age-related osteoporosis without current pathological fracture; R09.02 Hypoxemia; R06.89 Other abnormalities of breathing; E83.51 Hypocalcemia; E83.39 Other disorders of phosphorus metabolism; E16.2 Hypoglycemia, unspecified; K21.9 Gastro-esophageal reflux disease without esophagitis; Z79.82 Long term (current) use of aspirin; Z79.899 Other long term (current) drug therapy; Z98.61 Coronary angioplasty status
CPT/HCPCS: 71045; 74176; 74420; 76000; 80048; 80053; 81003; 81015; 82805; 83605; 83735; 84100; 84484; 85025; 85027; 85610; 85730; 87040; 87077; 87086; 87154; 87186; 87205; 87502; 87811; 93005; 96365; 96366; 96375; 97116; 97162; 97167; 99285; A4300; C2617; J7030

== ENCOUNTER → 2024-12-22 15:32 | Outpatient (REF) | payer MEDICARE, OTHER, SELFPAY ==
[2024-12-22 16:36] LABS: ALT (SGPT) 22 U/L (0-35); AST (SGOT) 24 U/L (14-36); Albumin 3.9 g/dl (3.5-5.0); Alkaline Phosphatase 82 U/L (38-126); Blood Urea Nitrogen 19 mg/dl (7-17); Calcium 9.5 mg/dl (8.4-10.2); Carbon Dioxide 29 mmol/L (22-30); Chloride 105 mmol/L (98-107); Glucose 93 mg/dl (70-99); Potassium 4.9 mmol/L (3.5-5.1); Sodium 139 mmol/L (135-145); Total Protein 6.5 g/dl (6.3-8.2); eGFR > 60.00
[2024-12-22 16:39] LABS: Hematocrit 43.4 % (37.0-47.0); Hemoglobin 13.5 g/dL (12.0-16.0); Mean Corp Hgb Conc. 31.1 g/dL (33.0-37.0); Mean Corpuscular Volume 101.2 fL (81.0-99.0); Nucleated Red Blood Cells % 0 %; Platelet Count 237 10^3/uL (130-400); Red Cell Dist. Width 14.0 % (11.5-14.5)
[2024-12-22 16:56] LABS: Urine Character Clear (Clear)
[2024-12-22 17:16] LABS: Urine Squamous Cell 0-2 /LPF (Few)
[2024-12-22 17:17] LABS: Urine Red Blood Cell 0-2 /HPF (0-2); Urine Urothelial Cell 16-20 /LPF (FEW)
== END ==
LOC: CLAB 15:32
PROVIDERS: ATTENDING PHYSICIAN Physician Assistant
DX: A41.9 Sepsis, unspecified organism (principal); N13.9 Obstructive and reflux uropathy, unspecified; R09.02 Hypoxemia; Z09 Encounter for follow-up examination after completed treatment for conditions other than malignant neoplasm
CPT/HCPCS: 80053; 81003; 81015; 85025; 87086

== ENCOUNTER 2024-12-26 06:09 | Day surgery (SDC) | payer MEDICARE, OTHER, SELFPAY ==
--- NOTE | 2024-12-21 11:15 | PTCARENOTE ---
Lima in office made aware of CXR report from 12/12/24
--- NOTE | 2024-12-21 13:22 | PTCARENOTE ---
Dr. Rodriguez made aware of CXR result from 12/12/24. He stated they will have to decide clinically day of surgery whether patient is stable for procedure.
[2024-12-26] VITALS (11 sets, daily range): BP systolic 122–136; BP diastolic 64–72; BMI 25.1
[2024-12-26] MEDS: DETROL LA 4 MG PO (08:46)
== END 2024-12-26 10:04 | disposition home or self-care (01) ==
LOC: SDS 06:09
PROVIDERS: ATTENDING PHYSICIAN Specialist
DX: N20.2 Calculus of kidney with calculus of ureter (principal)
CPT/HCPCS: 52356; 74018; 76000; 82365; 87086; C2617; J1580

== ENCOUNTER → 2025-01-02 14:32 | Outpatient (REF) | payer MEDICARE, OTHER, SELFPAY ==
[2025-01-02 15:34] LABS: ALT (SGPT) 16 U/L (0-35); AST (SGOT) 22 U/L (14-36); Albumin 4.1 g/dl (3.5-5.0); Alkaline Phosphatase 82 U/L (38-126); Blood Urea Nitrogen 24 mg/dl (7-17); Calcium 9.7 mg/dl (8.4-10.2); Carbon Dioxide 31 mmol/L (22-30); Chloride 104 mmol/L (98-107); Glucose 98 mg/dl (70-99); Potassium 5.1 mmol/L (3.5-5.1); Sodium 140 mmol/L (135-145); Total Protein 6.6 g/dl (6.3-8.2); eGFR > 60.00
== END ==
LOC: REG 14:32
PROVIDERS: ATTENDING PHYSICIAN Internal Medicine Rheumatology; FAMILY PHYSICIAN Physician Assistant
DX: E55.9 Vitamin D deficiency, unspecified (principal); I25.10 Atherosclerotic heart disease of native coronary artery without angina pectoris; M16.11 Unilateral primary osteoarthritis, right hip; M19.041 Primary osteoarthritis, right hand; M70.62 Trochanteric bursitis, left hip; M81.0 Age-related osteoporosis without current pathological fracture; R29.890 Loss of height; S61.452A Open bite of left hand, initial encounter; Z68.25 Body mass index [BMI] 25.0-25.9, adult; Z79.899 Other long term (current) drug therapy
CPT/HCPCS: 36415; 80053; 82330

== ENCOUNTER → 2025-01-03 12:44 | Outpatient (REF) | payer MEDICARE, OTHER, SELFPAY | LOC: HWRAD 12:44 | PROVIDERS: ATTENDING PHYSICIAN Internal Medicine Rheumatology; FAMILY PHYSICIAN Physician Assistant | DX: Z09 Encounter for follow-up examination after completed treatment for conditions other than malignant neoplasm (principal); J90 Pleural effusion, not elsewhere classified; M25.559 Pain in unspecified hip; M81.0 Age-related osteoporosis without current pathological fracture | CPT/HCPCS: 71046; 73523; 73552 ==

== ENCOUNTER 2025-01-12 13:25 | Emergency (ER) | payer MEDICARE, OTHER, SELFPAY ==
[2025-01-12 13:27] VITALS: BP 160/101
[2025-01-12 13:42] LABS: Hematocrit 40.1 % (37.0-47.0); Hemoglobin 13.1 g/dL (12.0-16.0); Mean Corp Hgb Conc. 32.7 g/dL (33.0-37.0); Mean Corpuscular Volume 95.5 fL (81.0-99.0); Nucleated Red Blood Cells % 0 %; Platelet Count 143 10^3/uL (130-400); Red Cell Dist. Width 13.8 % (11.5-14.5)
[2025-01-12 13:58] LABS: ALT (SGPT) 16 U/L (0-35); AST (SGOT) 21 U/L (14-36); Albumin 4.2 g/dl (3.5-5.0); Alkaline Phosphatase 63 U/L (38-126); Blood Urea Nitrogen 20 mg/dl (7-17); Calcium 9.3 mg/dl (8.4-10.2); Carbon Dioxide 27 mmol/L (22-30); Chloride 109 mmol/L (98-107); Glucose 105 mg/dl (70-99); Potassium 4.8 mmol/L (3.5-5.1); Sodium 142 mmol/L (135-145); Total Protein 6.5 g/dl (6.3-8.2); eGFR > 60.00
[2025-01-12 14:09] LABS: Troponin I < 0.012 ng/ml
[2025-01-12 17:05] VITALS: BP 169/93
--- NOTE | 2025-01-12 17:18 | ED.GENMED ---
History of Present Illness
General
Chief Complaint: Chest Pain
Source: patient
Exam Limitations: none
Time Seen by Provider: 01/12/25 17:07
History of Present Illness
History of Present Illness:
84-year-old female with history of myocardial infarction on Lipitor aspirin and Protonix presents with brief episode of chest discomfort starting yesterday while driving before lunch. Discomfort was in the center of her chest did not radiate to her
jaw or arm was not short of breath nor she nauseous or diaphoretic. The pain lasted 15 minutes and resolved on its own and since then she has been pain-free. She called her cardiology office and they referred her here for evaluation. She has no
complaints offered at this time. No leg swelling or calf pain. No recent extended travel or surgery. No fever or cough. No other complaints
Past History
Past History
ED Past Medical History: Arrthythmia, CAD, HTN, Hypercholesterolemia, [place] and Other (Osteoporosis)
ED Past Surgical History: Other (Radiofrequency Ablation therapy Lumbar spine Corticosteroid injection L hip)
Social History
Tobacco: Non-smoker
Alcohol: Occasional
Drug: None
Personal:
Living: with family
Family History
Family History: CAD and Other (No arrhythmias)
Phy Exam
Physical Exam
Physical Exam:
General: Well-appearing female no acute distress
HEENT normal cephalic atraumatic
Heart: Regular rate and rhythm
Lungs: Clear no wheeze extremities: No cyanosis edema or calf tenderness
Abdomen is soft and nontender
Scores
Heart Score for Chest Pain Patients
STEMI patient?: No
History: Slightly or Non-Suspicious
ECG: Normal
Age: >/= 65 years
Risk Factors: >/= 3 Risk Factors or History of CAD
Troponin: </= Normal Limit
Heart Score for Chest Pain Patients: 4
Heart Score Risk: 20.3% MACE over next 6 weeks
Course
Orders/Labs/Results
Orders:
Orders
01/12/25 13:26
Electrocardiogram (*1) Urgent
Reason for Study: Chest Pain
EKG- Treatment ONCE
01/12/25 13:35
Complete Blood Count/With Diff Urgent
Comprehensive Metabolic Panel Urgent
Troponin I Urgent
01/12/25 17:17
CR Chest - 2 Views Urgent
Comment:
Reason For Exam: chest pain
Abnormal Lab Results
01/12/25
13:35
MCH 31.2 H pg
(27.0-31.0)
MCHC 32.7 L g/dL
(33.0-37.0)
Absolute Lymphs (auto) 1.0 L 10^3/uL
(1.2-3.4)
Lymphocytes % 17.8 L %
(20.5-51.1)
Chloride 109 H mmol/L
(98-107)
BUN 20 H mg/dl
(7-17)
Glucose 105 H mg/dl
(70-99)
01/12/25 13:35
01/12/25 13:35
Vital Signs
Initial and Last Documented VS:
Initial Vital Signs
Temp Pulse Resp BP Pulse Ox
97.9 F 88 19 160/101 97
01/12/25 13:27 01/12/25 13:27 01/12/25 13:27 01/12/25 13:27 01/12/25 13:27
Last Documented Vital Signs
Temp Pulse Resp BP Pulse Ox
97.9 F 87 16 169/93 97
01/12/25 13:27 01/12/25 17:15 01/12/25 18:05 01/12/25 17:05 01/12/25 17:20
MDM/Problems Addressed
Differential Diagnosis Includes:
Brief episode of chest pain while driving yesterday now resolved. Consider reflux versus ACS and less likely PE given the resolution of the symptoms and no risk factors for this with stable vital signs
EKG shows sinus rhythm without ischemic changes. Labs reviewed normal troponin. No significant finding in the blood work. Will obtain chest x-ray. If negative will have her follow-up with cardiology team
Consider repeating troponin however not indicated given the duration of time that has elapsed since the onset of the symptom
*Pulse Oximetry
SaO2: 97
Patient hypoxic: no
*Critical Care Note
Total Time (30-74mins, 75-104mins- exclusive of procedures): Not Applicable
Update Note
Update Note:
Workup here unremarkable with normal chest x-ray undetectable troponin. Patient symptoms have completely resolved. Symptom onset yesterday. No indication for admission. Will advise she follow-up with cardiology as an outpatient. Return
precautions were given
ED Attending Note
-
Portions of this chart may have been created with voice recognition software.� Occasional wrong word or��sound alike� substitutions may have occurred due to the inherent limitations of voice recognition software.
Discharge Plan
Departure
Patient Disposition: Home (Routine Discharge)
Date of Disposition: 01/12/25
Time of Disposition: 18:08
Patient with high blood pressure during this ER visit?: No
Discharge Problem:
Chest pain
Instructions: Chest Pain DCA Follow Up
Prescriptions:
No Action
Curamed
1 tab PO DAILY
Patient Comments:
turmeric
Prevagen
1 tab PO DAILY
Patient Comments:
pt does not know dose
atorvastatin 80 MG tablet
80 mg PO QPM Qty: 90 3RF
losartan 25 mg Tablet
25 mg PO DAILY
carvedilol 12.5 mg tablet
12.5 mg PO BID
acetaminophen 500 mg Tablet
1,000 mg PO Q6HPRN PRN (Reason: mild pain/fever)
diphenhydramine-acetaminophen [Tylenol PM Extra Strength] 25-500 mg Tablet
1 tab PO HSPRN PRN (Reason: sleep)
magnesium 250 mg Tablet
250 mg PO HS
teriparatide [Forteo] 20 mcg/dose (560mcg/2.24mL) pen injector
20 mcg SC MOWEFR
amoxicillin-pot clavulanate 875-125 mg Tablet
1 tab PO Q12 Qty: 19 0RF
Rx Instructions:
12/24/24 last day for antibiotics
Saccharomyces boulardii 250 mg Capsule
250 mg PO BID Qty: 19 0RF
Rx Instructions:
To promote gut health while on antibiotics
Ok to discontinue when off antibiotics
cholecalciferol (vitamin D3) [Vitamin D3] 25 mcg (1,000 unit) Tablet
25 mcg PO DAILY
aspirin 81 MG tablet,chewable
81 mg PO HS
Referrals:
Toshia Gardiner PA-C [Family Provider, Internal Medicine]
Activity Restrictions/Additional Instructions:
Please return here for worsening symptoms otherwise follow-up with cardiology. They should give you a call to set an appointment for follow-up
Interventions
Interventions:
*Risk Screen - Suicide Last Done: 01/12/25 13:29
*General Assessment Last Done: 01/12/25 13:29
*Neglect/Abuse Screening Last Done: 01/12/25 13:29
*ED- Fall Risk Assessment Last Done: 01/12/25 16:59
*ED COVID-19 Vaccine History Last Done: 01/12/25 13:29
*ED Influenza Vaccine History Last Done: 01/12/25 13:29
ED- Cardiac Assessment Last Done: 01/12/25 16:59
Discharge Date and Time
Print Language: JAPANESE
[2025-01-12 18:10] VITALS: BP 162/89
== END 2025-01-12 18:23 | disposition home or self-care (01) ==
LOC: EMR 13:25
PROVIDERS: Emergency Medicine; EMERGENCY PHYSICIAN Emergency Medicine; FAMILY PHYSICIAN Physician Assistant
DX: R07.89 Other chest pain (principal); I25.10 Atherosclerotic heart disease of native coronary artery without angina pectoris; I10 Essential (primary) hypertension; E78.00 Pure hypercholesterolemia, unspecified; I25.2 Old myocardial infarction; M81.0 Age-related osteoporosis without current pathological fracture; Z82.49 Family history of ischemic heart disease and other diseases of the circulatory system
CPT/HCPCS: 99283; 71046; 80053; 84484; 85025; 93005

== ENCOUNTER → 2025-01-31 06:58 | Outpatient (REF) | payer MEDICARE, OTHER, SELFPAY | LOC: HWRCS 06:58 | PROVIDERS: ATTENDING PHYSICIAN Physician Assistant Medical; FAMILY PHYSICIAN Physician Assistant | DX: R07.9 Chest pain, unspecified (principal); I25.10 Atherosclerotic heart disease of native coronary artery without angina pectoris; Z95.5 Presence of coronary angioplasty implant and graft | CPT/HCPCS: 78452; 93017; A9500; J2785 ==

== ENCOUNTER 2025-02-16 10:16 | Inpatient (IN) | payer MEDICARE, OTHER, SELFPAY ==
[2025-02-16] VITALS (9 sets, daily range): BP systolic 104–165; BP diastolic 73–94; BMI 26.7; BMI 26.1
--- NOTE | 2025-02-16 07:17 | ED.GENMED ---
History of Present Illness
General
Chief Complaint: Abdominal Symptoms
Source: patient
Exam Limitations: none
Time Seen by Provider: 02/16/25 07:11
History of Present Illness
History of Present Illness:
See MDM
Past History
Past History
ED Past Medical History: Arrthythmia, CAD, HTN, Hypercholesterolemia, MO and Other (Osteoporosis)
ED Past Surgical History: Other (Radiofrequency Ablation therapy Lumbar spine Corticosteroid injection L hip)
Social History
Tobacco: Non-smoker
Alcohol: Occasional
Drug: None
Personal:
Living: with family
Family History
Family History: CAD and Other (No arrhythmias)
Phy Exam
Physical Exam
Physical Exam:
See MDM
Course
Orders/Labs/Results
Orders:
Orders
02/16/25 07:03
EKG [Electrocardiogram (*1)] Urgent
Reason for Study: Abdominal Pain
EKG- Treatment ONCE
02/16/25 07:16
CT Abd/pelvis W Iv Cont Urgent
Comment:
Reason For Exam: mid upper abd pain
02/16/25 07:35
Complete Blood Count/With Diff Urgent
Comprehensive Metabolic Panel Urgent
Lipase Urgent
Troponin I Urgent
02/16/25 07:44
Morphine Sulfate 4 mg IV NOW STA
02/16/25 09:32
0.9% Sodium Chloride 1000 ml [Nss] 1,000 ml IV BOLUS
Abnormal Lab Results
02/16/25
07:35
MCH 31.1 H pg
(27.0-31.0)
MCHC 32.4 L g/dL
(33.0-37.0)
Absolute Lymphs (auto) 0.7 L 10^3/uL
(1.2-3.4)
Neutrophils % 80.4 H %
(42.2-75.2)
Lymphocytes % 9.8 L %
(20.5-51.1)
Carbon Dioxide 32 H mmol/L
(22-30)
BUN 18 H mg/dl
(7-17)
Lipase > 4000 H* U/L
(23-300)
02/16/25 07:35
02/16/25 07:35
Vital Signs
Initial and Last Documented VS:
Initial Vital Signs
Temp Pulse Resp BP Pulse Ox
98.7 F 88 22 165/94 98
02/16/25 07:06 02/16/25 07:06 02/16/25 07:06 02/16/25 07:06 02/16/25 07:06
Last Documented Vital Signs
Temp Pulse Resp BP Pulse Ox
98.7 F 79 14 142/80 97
02/16/25 07:06 02/16/25 07:40 02/16/25 07:40 02/16/25 07:40 02/16/25 07:40
MDM/Problems Addressed
Differential Diagnosis Includes:
Note:
CHIEF COMPLAINT(S)
Abdominal pain.
HISTORY OF PRESENT ILLNESS
The patient is an 84-year-old female presenting with abdominal pain which began gradually before 5 AM today. The patient described the pain as initially feeling like gas, prompting her to take a couple of antacids. These measures did not alleviate
the pain, which she rated as becoming gradually worse. She reports associated neck and back pain without chest pain or shortness of breath at the moment, although she has experienced a heart attack in the past without typical symptoms. The pain is
currently localized in the belly, with some discomfort identified upon palpation. She has not eaten today, and reports difficulty getting comfortable regardless of body position. The patient had not experienced exacerbation of symptoms with
ambulation and denied any aggravation after eating.
Given her prior history of a heart attack without classic symptoms, patient is worried about possible heart related issues
PHYSICAL EXAM
General: Alert, no acute distress. Ambulating without difficulty
Skin: Warm, dry.
Head: Normocephalic, atraumatic
Neck: Appears supple, trachea midline.
Eyes, Ears, Nose, Mouth, and Throat: Moist mucous membranes
Cardiovascular: No signs of cyanosis. Regular rate and rhythm
Respiratory: Respirations are non-labored.
Abdomen: Non-distended. Very mild nonspecific mid abdominal pain without
Musculoskeletal: No deformities
Neurological: No focal neurological deficit observed.
Psychiatric: Cooperative, appropriate mood and affect.
ELECTROCARDIOGRAM (EKG)
My independent EKG interpretation indicates that the EKG appears normal.
PLAN
- Perform blood work focusing on cardiac markers.
- Conduct a computed tomography (CT) scan of the abdomen to rule out any acute abdominal conditions.
- Evaluate gallbladder status as symptoms suggest possible biliary pain.
DIFFERENTIAL DIAGNOSIS
The Differential Diagnosis includes, in no particular order and is not limited to:
- Gastroesophageal reflux disease
- Peptic ulcer disease
- Gallbladder disease (e.g., cholecystitis)
- Pancreatitis
- Myocardial infarction/Angina atypical presentation
- Abdominal aortic aneurysm
- Gastritis
- Hepatic pathology
- Musculoskeletal pain
- Bowel obstruction
SUMMARY OF ENCOUNTER
The patient presented to the emergency department with a primary complaint of abdominal pain. Given the patients history of atypical myocardial infarction presentation and current abdominal discomfort overlapping with past experiences, it is prudent
to conduct blood work and imaging to evaluate cardiac status and investigate any abdominal pathology. The examination revealed mild abdominal discomfort but no signs of acute distress, allowing for further non-emergent investigation.
DISPOSITION
Discharge upon ruling out acute causes of symptoms and if stable.
ASSESSMENT
The focus is on potential gastrointestinal conditions with consideration of referring to cardiology if cardiac issues are indicated by the results.
INDEPENDENT REVIEW OF LABS AND INTERPRETATION OF TESTS
My independent review of planned tests is pending.
MEDICAL DECISION MAKING
- Number and Complexity of Problems Addressed: Chronic conditions affecting care include previous myocardial infarction, with DDx list.
- Data:
Category 1: Blood work for cardiac markers and abdominal CT scan.
Category 2: My independent EKG interpretation showed normal results.
- Risk: Consideration of Admission/Observation: Escalation of care including admission/observation was considered given the complexity and risk. However, the patient may be safe for outpatient management with adequate follow-up, contingent on
results and symptom progression.
DIAGNOSIS
- pancreatitis
SUMMARY OF ENCOUNTER
The patient is an 84-year-old female who presented to the emergency department with mid-abdominal pain. Initial investigations showed normal troponin levels, but the lipase was elevated at greater than 4,000 U/L, suggestive of pancreatitis. Although
the patient does not have a history of significant alcohol abuse, she admits to occasional alcohol use. Due to her ongoing abdominal symptoms and elevated lipase levels, admission was considered for further evaluation and pain management.
DISPOSITION
Admit for pain control.
ASSESSMENT
The patient likely has pancreatitis, indicated by an elevated lipase level. Differential diagnoses include other gastrointestinal etiologies or potential complications from occasional alcohol use.
PLAN
The plan includes admission for pain control and further evaluation of pancreatitis or other abdominal conditions. Additional tests may be performed during the inpatient stay to determine underlying causes and necessary treatments.
INDEPENDENT REVIEW OF LABS AND INTERPRETATION OF TESTS
My independent review of the lipase indicated an elevated level greater than 4,000 U/L, which is suggestive of pancreatitis. Troponin levels were normal, indicating no acute cardiac event.
MEDICAL DECISION MAKING
- Number and Complexity of Problems Addressed: Chronic conditions affecting care include pancreatitis, intermittent alcohol use. Differential diagnosis includes other gastrointestinal etiologies.
- Data:
Category 1: Laboratory tests reviewed include lipase and troponin levels.
- Risk: The patient requires admission for pain control due to potential complications from elevated lipase levels and ongoing symptoms of pancreatitis.
*Pulse Oximetry
SaO2: 98
Oxygen Mode of Delivery: Room air
Patient hypoxic: no
*Critical Care Note
Total Time (30-74mins, 75-104mins- exclusive of procedures): Not Applicable
ED Attending Note
-
Portions of this chart may have been created with voice recognition software.� Occasional wrong word or��sound alike� substitutions may have occurred due to the inherent limitations of voice recognition software.
Discharge Plan
Departure
Patient Disposition: Admit
Date of Disposition: 02/16/25
Time of Disposition: 09:34
Admit to: Med/Surg
Presentation/result/management discussed w/ accepting MD/DO: Hospitalist
Discharge Problem:
Pancreatitis
Prescriptions:
No Action
Curamed
2 tab PO DAILY
Patient Comments:
turmeric
Prevagen
1 tab PO DAILY
Patient Comments:
pt does not know dose
atorvastatin 80 MG tablet
80 mg PO QPM Qty: 90 3RF
losartan 25 mg Tablet
25 mg PO DAILY
carvedilol 12.5 mg tablet
12.5 mg PO BID
diphenhydramine-acetaminophen [Tylenol PM Extra Strength] 25-500 mg Tablet
1 tab PO HSPRN PRN (Reason: sleep)
teriparatide [Forteo] 20 mcg/dose (560mcg/2.24mL) pen injector
20 mcg SC [id number]
cholecalciferol (vitamin D3) [Vitamin D3] 25 mcg (1,000 unit) Tablet
25 mcg PO DAILY
aspirin 81 MG tablet,chewable
81 mg PO HS
calcium carbonate [Tums] 200 mg calcium (500 mg) Tablet,Chewable
400 mg PO BIDPRN PRN (Reason: gerd)
Fiber Gummies 2 gram Tablet,Chewable
4 g PO DAILY
Referrals:
UNKNOWN - PT NOT,INTERVIEWE [Family Provider]
Interventions
Interventions:
*Risk Screen - Suicide Last Done: 02/16/25 07:06
*General Assessment Last Done: 02/16/25 07:38
*Neglect/Abuse Screening Last Done: 02/16/25 07:38
*ED- Fall Risk Assessment Last Done: 02/16/25 07:38
*ED COVID-19 Vaccine History Last Done: 02/16/25 07:38
*ED Influenza Vaccine History Last Done: 02/16/25 07:38
[id number] Assessment Last Done: 02/16/25 07:38
Discharge Date and Time
Print Language: AZERI
[2025-02-16] MEDS: MORPHINE SULFATE 4 MG IV (07:55)
[2025-02-16 08:05] LABS: Hematocrit 43.5 % (37.0-47.0); Hemoglobin 14.1 g/dL (12.0-16.0); Mean Corp Hgb Conc. 32.4 g/dL (33.0-37.0); Mean Corpuscular Volume 96.0 fL (81.0-99.0); Nucleated Red Blood Cells % 0 %; Platelet Count 142 10^3/uL (130-400); Red Cell Dist. Width 13.4 % (11.5-14.5)
[2025-02-16 08:25] LABS: ALT (SGPT) 16 U/L (0-35); AST (SGOT) 23 U/L (14-36); Albumin 4.1 g/dl (3.5-5.0); Alkaline Phosphatase 60 U/L (38-126); Blood Urea Nitrogen 18 mg/dl (7-17); Calcium 9.8 mg/dl (8.4-10.2); Carbon Dioxide 32 mmol/L (22-30); Chloride 105 mmol/L (98-107); Estimated Creatinine Clearance 53 ml/min; Glucose 92 mg/dl (70-99); Potassium 4.4 mmol/L (3.5-5.1); Sodium 142 mmol/L (135-145); Total Protein 6.3 g/dl (6.3-8.2); eGFR > 60.00
[2025-02-16 08:47] LABS: Troponin I < 0.012 ng/ml
[2025-02-16 09:04] LABS: Lipase > 4000 U/L (23-300)
--- NOTE | 2025-02-16 09:58 | HPS.HSE ---
Family Physician
-
Family Physician: INTERVIEWE UNKNOWN - PT NOT
Chief Complaint
-
Acute pancreatitis
History of Present Illness
Ms. Gonzalez is a 84-year-old female with a medical history of CAD, hypertension, SVT, kidney stones, and recent septic shock secondary to obstructing right ureteral kidney stone. She presents now with acute epigastric pain that radiates to her
back. She denies fevers, chills, chest pain, shortness of breath, diarrhea, or dysuria. She was normotensive and afebrile in the ED. Labs were generally unremarkable including undetectable troponin, within the exception of lipase greater than
4000. EKG showed no acute abnormalities. CT abdomen pelvis showed no acute abnormality. However she was significantly tender to palpation in the epigastrium. She was started on IV fluids and pain medications. She has been admitted for further
evaluation and management of acute pancreatitis.
Medical History
Past Medical History
Past Medical History: Reports Other
Additional Past Medical History:
CAD, hypertension, SVT, kidney stones, and septic shock secondary to obstructing right ureteral kidney stone
Past Surgical History: Reports Other
Additional Past Surgical History:
Radiofrequency ablation, steroid injections lumbar spine and left hip
Social History
Tobacco: Non-smoker
Alcohol: Occasional
Drug: None
Personal:
Living: With Family
Family History
Family History: Not pertinent
Allergies / Home Medications
Allergies reflects when Allergies were last updated in [facility].
Home Medications with original date entered in [facility]
Allergy/Medication List:
Allergies
Allergy/AdvReac Type Severity Reaction Status Date / Time
No Known Allergies Allergy Verified 12/26/24 06:53
Home Medications
Prevagen 1 tab PO DAILY Supplement 07/25/21
turmeric 400 mg capsule 750 mg PO DAILY Supplement ##0 07/25/21
atorvastatin 80 mg tablet 80 mg PO QPM #90 tabs 07/29/21
losartan 25 mg tablet 25 mg PO DAILY Blood Pressure 02/01/22
carvedilol 12.5 mg tablet 12.5 mg PO BID Blood Pressure 12/11/24
diphenhydramine 25 mg-acetaminophen 500 mg tablet (Tylenol PM Extra Strength) 1 tab PO HSPRN PRN sleep 12/11/24
teriparatide 20 mcg/dose (560 mcg/2.24 mL) subcutaneous pen injector (Forteo) 20 mcg SC [id number] Osteoporosis 12/11/24
aspirin 81 mg chewable tablet 81 mg PO HS 12/21/24
cholecalciferol (vitamin D3) 25 mcg (1,000 unit) tablet (Vitamin D3) 25 mcg PO DAILY 12/21/24
calcium carbonate (Tums) 400 mg PO BIDPRN PRN gerd 02/16/25
inulin 2 gram chewable tablet 4 g PO DAILY Constipation 02/16/25
Review of Systems
-
History Source: Patient
A 12 point ROS was completed and negative except as noted: Yes
Abdomen/GI: Reports Abdominal Pain
Physical Exam
Vital Signs
Vital Signs
Temp Pulse Resp BP Pulse Ox
98.7 F 79 14 142/80 97
02/16/25 07:06 02/16/25 07:40 02/16/25 07:40 02/16/25 07:40 02/16/25 07:40
Physical Exam
General: No Apparent Distress
Laboratory Results
-
02/16/25 07:35
02/16/25 07:35
Laboratory Results
Total Bilirubin 0.7 mg/dl (0.2-1.3) 02/16/25 07:35
AST 23 U/L (14-36) 02/16/25 07:35
ALT 16 U/L (0-35) 02/16/25 07:35
Alkaline Phosphatase 60 U/L (38-126) 02/16/25 07:35
Troponin I < 0.012 ng/ml 02/16/25 07:35
Lipase > 4000 U/L (23-300) H* 02/16/25 07:35
Impression/Plan
-
General: No Apparent Distress, Comfortable and Conversant
HEENT: NormoCephalic, Moist mucous membranes, Atraumatic
Respiratory: Clear and Non Labored Respirations
Cardiac: S1/S2 and Regular Rhythm; No Rub or Gallop
GI: Soft, epigastric TTP, Non Distended and Normal Bowel Sounds
Musculoskeletal: No Edema, no deformity
Skin: Warm and dry
: NO Ocnnor
Neuro: Awake, Alert, Nonfocal/grossly intact
Psych: Calm and Intact Judgment/Insight
Ms. Gonzalez is a 84-year-old female with a medical history of CAD ([place] 2021, ELICEO to RCA), hypertension, SVT, kidney stones, and recent septic shock secondary to obstructing right ureteral kidney stone. She presents now with acute epigastric pain
that radiates to her back. She denies fevers, chills, chest pain, shortness of breath, diarrhea, or dysuria. She was normotensive and afebrile in the ED. Labs were generally unremarkable including undetectable troponin, within the exception of
lipase greater than 4000. EKG showed no acute abnormalities. CT abdomen pelvis showed no acute abnormality. However she was significantly tender to palpation in the epigastrium. She was started on IV fluids and pain medications. She has been
admitted for further evaluation and management of acute pancreatitis.
Acute pancreatitis:
- Idiopathic, patient reports only occasional alcohol use
- LFTs within normal limits and unremarkable hepatic findings on CT imaging so low suspicion for gallstone etiology
- Patient is not on any medications that have a strong link to pancreatitis, however she is on high-dose statin which is very rarely associated with pancreatitis
- Would recommend continuing her statin for now considering her cardiac history as risks outweigh the benefits at this point
- Continue aggressive IV fluids
- Pain control, antiemetics
- Clear liquid diet, advance as tolerated
CAD:
- History of 2021 with ELICEO to RCA
- Continue aspirin and statin
- Beta-blockade with carvedilol 12.5 mg p.o. twice daily
Hypertension:
- Continue home losartan 25 mg daily
DVT prophylaxis: Lovenox
CODE STATUS: Full code
[2025-02-16] MEDS: NSS 1000 IV ×3 (10:38→21:10)
--- NOTE | 2025-02-16 10:44 | EDCM ---
Reviewed chart and met with pt bedside in ED. Lives with her in 2 story home, [address], no basement. Has half bath on first floor, full flight to second floor bedroom and full bath.
Independent in ADLs, personal care and ambulation at baseline, does not currently use assistive device but does have RW, SPC and walking sticks. She also has shower chair. Still drives.
Confirms prescription coverage.
will transport home at time of discharge.
PCP: Toshia Gardiner
Pharmacy: [facility]
Anticipate discharge home, CM will continue to follow for all discharge planning needs.
[2025-02-16] MEDS: PROTONIX IV 40 MG IV (13:08)
[2025-02-16] MEDS: NSS (PRESERVATIVE FREE) 10 ML IV (13:08)
[2025-02-16] MEDS: LOVENOX 40 MG SC (17:49)
[2025-02-16] MEDS: LIPITOR 80 MG PO (17:49)
[2025-02-16] MEDS: TYLENOL 650 MG PO (18:29)
[2025-02-16] MEDS: COREG 12.5 MG PO (21:10)
[2025-02-16] MEDS: LOW STRENGTH ASPIRIN 81 MG PO (21:10)
[2025-02-17] MEDS: NSS 1000 IV (04:54)
[2025-02-17 07:30] LABS: Hematocrit 39.5 % (37.0-47.0); Hemoglobin 12.7 g/dL (12.0-16.0); Mean Corp Hgb Conc. 32.2 g/dL (33.0-37.0); Mean Corpuscular Volume 96.1 fL (81.0-99.0); Nucleated Red Blood Cells % 0 %; Platelet Count 120 10^3/uL (130-400); Red Cell Dist. Width 13.5 % (11.5-14.5)
[2025-02-17 07:56] LABS: Blood Urea Nitrogen 8 mg/dl (7-17); Calcium 8.3 mg/dl (8.4-10.2); Carbon Dioxide 27 mmol/L (22-30); Chloride 111 mmol/L (98-107); Estimated Creatinine Clearance 52 ml/min; Glucose 84 mg/dl (70-99); Magnesium 1.8 mg/dl (1.6-2.3); Potassium 3.9 mmol/L (3.5-5.1); Sodium 141 mmol/L (135-145); eGFR > 60.00
[2025-02-17 08:00] VITALS: BP 149/89
[2025-02-17] MEDS: PROTONIX IV 40 MG IV (08:15)
[2025-02-17] MEDS: COZAAR 25 MG PO (08:15)
[2025-02-17] MEDS: VITAMIN D3 (cholecalciferol) 25 MCG PO (08:15)
[2025-02-17] MEDS: NSS (PRESERVATIVE FREE) 10 ML IV (08:15)
[2025-02-17] MEDS: COREG 12.5 MG PO (08:15)
[2025-02-17 13:00] VITALS: BP 145/88
--- NOTE | 2025-02-17 14:59 | W.DCSUMMARY ---
Discharge Summary
Discharge Data
Date of Admission: 02/16/25
Date of Discharge: 02/17/25
Total time spent discharging patient (in min): 50
-
Pending Results: No
Hospital Course
Ms. Gonzalez is a 84-year-old female with a medical history of CAD ([place] 2021, ELICEO to RCA), hypertension, SVT, kidney stones, and recent septic shock secondary to obstructing right ureteral kidney stone. She presented with acute epigastric pain
that radiated to her back. She denied fevers, chills, chest pain, shortness of breath, diarrhea, or dysuria. She was normotensive and afebrile in the ED. Labs were generally unremarkable including undetectable troponin, with the exception of a
lipase greater than 4000. EKG showed no acute abnormalities. CT abdomen pelvis showed no acute abnormality. However she was significantly tender to palpation in the epigastrium. She was started on IV fluids and pain medications and admitted for
further evaluation and management of acute pancreatitis.
Her epigastric pain resolved relatively quickly. Her clear liquid diet was able to be advanced to a low-fat diet which she tolerated well. Her IV fluids were discontinued. She had no clear etiology of her pancreatitis. She reports only
occasional alcohol use. There is a small possibility that her high dose atorvastatin could have contributed to her pancreatitis. However at this point the risks of stopping her statin therapy outweigh the benefits considering her cardiac history.
She will be discharged to home with all of her home medications continued. She will need to follow-up closely with her primary care physician for ongoing management and medication adjustments as needed.
General: No Apparent Distress, Comfortable and Conversant
HEENT: NormoCephalic, Moist mucous membranes, Atraumatic
Respiratory: Clear and Non Labored Respirations
Cardiac: S1/S2 and Regular Rhythm; No Rub or Gallop
GI: Soft, Non Tender, Non Distended and Normal Bowel Sounds
Musculoskeletal: No Edema, no deformity
: NO Connor
Neuro: Awake, Alert, Nonfocal/grossly intact
Psych: Calm and cooperative
Discharge Plan
-
Patient Disposition: Home (Routine Discharge)
Discharge Diagnosis/Procedures: Acute pancreatitis
Activity Restrictions/Additional Instructions:
You were admitted for evaluation and management of acute pancreatitis. You were treated with IV fluids and pain medications as needed. Your pancreatitis resolved relatively quickly and you were able to tolerate a low-fat diet. You will be
discharged to home. You should continue to eat a low-fat diet at first and can slowly reintroduce a regular diet as tolerated. Like no clear cause of your pancreatitis. Your liver function test were normal. Sometimes high dose statin medication
(for cholesterol) can be associated with pancreatitis, however this is very rare. You should continue taking your statin medication for now as the benefits outweigh the risks at this point considering your cardiac history. You will need to
follow-up closely with your primary care physician.
Referrals:
UNKNOWN - PT NOT,INTERVIEWE [Family Provider]
Prescriptions:
Continued
turmeric 400 mg Capsule
750 mg PO DAILY Qty: 0
Prevagen
1 tab PO DAILY
atorvastatin 80 MG tablet
80 mg PO QPM Qty: 90 3RF
losartan 25 mg Tablet
25 mg PO DAILY
carvedilol 12.5 mg tablet
12.5 mg PO BID
diphenhydramine-acetaminophen [Tylenol PM Extra Strength] 25-500 mg Tablet
1 tab PO HSPRN PRN (Reason: sleep)
cholecalciferol (vitamin D3) [Vitamin D3] 25 mcg (1,000 unit) Tablet
25 mcg PO DAILY
aspirin 81 MG tablet,chewable
81 mg PO HS
calcium carbonate [Tums] 200 mg calcium (500 mg) Tablet,Chewable
400 mg PO BIDPRN PRN (Reason: gerd)
inulin 2 gram Tablet,Chewable
4 g PO DAILY
Prolia 60 mg/mL Syringe
60 mg SC [id number]
Discharge Orders:
Discharge Patient (As Directed); Ordered 02/17/25
Ordered By: Josue Al
Discharge Date and Time
Print Language: SWEDISH
== END 2025-02-17 15:19 | disposition home or self-care (01) | DRG 440 ==
LOC: 3 WEST ACU 10:16
PROVIDERS: ADMITTING PHYSICIAN Internal Medicine; EMERGENCY PHYSICIAN Student in an Organized Health Care Education/Training Program
DX: K85.90 Acute pancreatitis without necrosis or infection, unspecified (principal); I25.10 Atherosclerotic heart disease of native coronary artery without angina pectoris; I10 Essential (primary) hypertension; I25.2 Old myocardial infarction; Z79.899 Other long term (current) drug therapy
CPT/HCPCS: 74177; 80048; 80053; 83690; 83735; 84484; 85025; 93005; 96361; 96374; 99285; Q9967